=== PATIENT | male | born 1990 | race Caucasian/White ===

== ENCOUNTER 2016-06-29 11:54 | Emergency (ER) | payer OTHER ==
[~2016-06-29] VITALS: Ht 172.7 cm; Wt 77.3 kg
[2016-06-29 11:55] VITALS: BP 154/90; PULSE 100; TEMP 36.4; O2SAT 96; Ht 172.7 cm; Wt 77.3 kg
[2016-06-29] MEDS ORDERED: CTP/1 PO ×2 (12:30→12:49)
--- NOTE | 2016-06-29 12:42 | EMERGENCY ROOM VISIT NOTE ---
ED Visit Note First contact with patient: 12:04 CHIEF COMPLAINT: Requests medication prescription refill HISTORY OF PRESENT ILLNESS: This 26-year-old male presents to the ER requesting refills on 6 different medications for his anxiety and depression. The patient states that he was incarcerated and was released on May 26. They only gave him 5 days worth of medication on discharge. On June 05 he did intake evaluation for mental health and then is in the process of 3 counselor sessions and after he goes through this then they will put in a request for a psychiatric appointment for medication. The patient states the earliest appointment he has now is July 24 with a psychiatrist for medication. He just got a call today from the [facility] who gave him an appointment with a family physician, Dr. Anguiano this at 8 AM to hopefully fill his prescriptions until he is evaluated by psychiatry on July 24. The patient states that he has been off his meds for almost 3 weeks. He is more agitated and on edge. He also has depression symptoms. He denies any suicidal homicidal ideations. PMH: The patient is healthy; heart disease, hypertension, anxiety/depression SOCIAL HISTORY: Patient admits to tobacco use but denies any alcohol use PHYSICAL EXAM: Vital Signs: Were reviewed Reviewed Nurse's notes. GEN.: 26-year -old white male appears in no acute distress. MENTAL Status: Alert and oriented 3. The patient appears somewhat anxious. He is nontender full. His thought process is good. LUNGS: Clear to auscultation without wheezes rales or rhonchi. CARDIAC: Regular rate and rhythm without murmur. EMERGENCY COURSE: The patient was evaluated. I discussed the case with Dr. Fitzgerald. I will give the patient a prescription for 3 days worth of all his medications. DIAGNOSIS: Prescription refill DISCHARGE INSTRUCTIONS: Take medications as prescribed. Keep scheduled appointment on with Dr. Anguiano. Problem List Medical Problems: (1) Antisocial personality disorder Status: Chronic (2) Bipolar disorder Status: Chronic (3) Bronchitis Status: Resolved (4) Hypertension Status: Chronic (5) Opioid dependence Status: Chronic (6) Pneumonia Status: Resolved Social History Problems: (1) Hepatitis C Status: Chronic Current/Historical Medications Scheduled Bupropion (Zyban), 150 MG PO BID Buspirone HCl (Buspirone HCl), 20 MG PO TID Clonidine Hcl (Catapres), 0.1 MG PO BID Oxcarbazepine (Trileptal), 150 MG PO BID Quetiapine Fumarate (Seroquel), 100 MG PO BID Quetiapine Fumarate (Seroquel), 150 MG PO HS Allergies Coded Allergies: Aspirin (Verified Allergy, Severe, RESP DISTRESS-THROAT CLOSES-HIVES, 06/29) Fish Allergy (Verified Allergy, Severe, RESPIRATORY DISTRESS-FACE SWELLS AND THROAT CLOSES UP, 06/29/16) Haloperidol (Verified Allergy, Severe, patient states "my throat closes", 06/29/16) Vital Signs Date Time Temp Pulse Resp B/P Pulse Ox O2 Delivery O2 Flow Rate FiO2 06/29/16 11:55 36.4 100 18 154/90 96 Room Air Departure Information Referrals No Doctor, Assigned (PCP) Patient Instructions [facility]
[2016-06-29] MEDS ORDERED: SRQ/100 PO (12:49)
[2016-06-29] MEDS ORDERED: OXCA150T3 PO (12:49)
[2016-06-29] MEDS ORDERED: BUPR150T7 PO (12:49)
[2016-06-29] MEDS ORDERED: BUSP15TA70 PO (12:49)
[2016-06-29] MEDS ORDERED: QUET1TAB32 PO (12:49)
[2016-12-04] MEDS ORDERED: BUPR150T47 PO (12:30)
[2016-12-04] MEDS ORDERED: QUET1TAB34 PO ×2 (12:30)
[2016-12-04] MEDS ORDERED: BSP/10 PO (12:30)
[2016-12-04] MEDS ORDERED: OXCA150T2 PO (12:30)
== END 2016-06-29 12:53 | disposition home or self-care (01) ==
LOC: C.EDB 11:56 → C.EDD 12:53
DX: Z02.79 Encounter for issue of other medical certificate (principal); F41.8 Other specified anxiety disorders; I10 Essential (primary) hypertension; I51.9 Heart disease, unspecified; F31.9 Bipolar disorder, unspecified; B19.20 Unspecified viral hepatitis C without hepatic coma; F17.200 Nicotine dependence, unspecified, uncomplicated; Z79.899 Other long term (current) drug therapy; Z88.8 Allergy status to other drugs, medicaments and biological substances; Z91.018 Allergy to other foods

== ENCOUNTER 2016-11-30 13:03 | Emergency (ER) | payer OTHER ==
[~2016-11-30] VITALS: Ht 172.7 cm; Wt 90.9 kg
[~2016-11-30 13:03] MED LIST: BUPR150T7 PO; CTP/1 PO; OXCA150T3 PO
[2016-11-30 13:08] VITALS: TEMP 36.5; Ht 172.7 cm; Wt 90.9 kg
[2016-11-30] MEDS ORDERED: SODIUM CHLORIDE 0.9% 1000ML 1,000 ML IV STA (13:32)
[2016-11-30 14:08] LABS: URINE APPEARANCE CLEAR (CLEAR); URINE BILIRUBIN NEG (NEG); URINE COLOR DK YELLOW; URINE NITRITE NEG (NEG); URINE PH 5.5 (4.5-7.5); URINE SPECIFIC GRAVITY 1.024 (1.000-1.030); UROBILINOGEN NEG (NEG); ZZUR CULT IF INDIC CLEAN CATCH NO
[2016-11-30 14:10] LABS: MANUAL MICROSCOPIC REQUIRED? NO; REVIEW REQ? NO
[2016-11-30 14:14] LABS: BASO % 0.2 %; BASO ABS # 0.03 K/uL (0-0.2); COMPLETE YES; EOS % 1.7 %; HEMATOCRIT 44.9 % (42-52); IG% 0.6 %; LYMPH ABS # 3.03 K/uL (1.2-3.4); MEAN CELL VOLUME 89.1 fL (80-100); MEAN CORPUSCULAR HEMOGLOBIN 31.9 pg (25-34); MEAN CORPUSCULAR HGB CONC 35.9 g/dl (32-36); MEAN PLATELET VOLUME 10.9 fL (7.4-10.4); NEUT % 72.5 %; PLATELET COUNT 347 K/uL (130-400); RED BLOOD COUNT 5.04 M/uL (4.7-6.1)
[2016-11-30 14:36] LABS: BUN/CREATININE RATIO 9.6 (10-20); CALCIUM 9.2 mg/dl (8.5-10.1); CREATININE 1.1 mg/dl (0.60-1.40); POTASSIUM 3.7 mmol/L (3.5-5.1)
--- NOTE | 2016-11-30 15:44 | DIAGNOSTIC IMAGING REPORT ---
CHEST 2 VIEWS ROUTINE CLINICAL HISTORY: Leukocytosis. Diaphoresis. COMPARISON STUDY: Chest radiograph December 02, 2013. FINDINGS: Lung volumes are normal. No pneumothorax or pleural effusion is present. There is no consolidation to suggest pneumonia. Mild interstitial prominence is unchanged. Cardiomediastinal silhouette is normal. Appearance of the chest is unchanged. IMPRESSION: No acute cardiopulmonary findings. Electronically signed by: Stalin Joshi M.D. 11/30/2016 3:42 PM Dictated Date/Time: 11/30/2016 3:41 PM
[2016-11-30] MEDS ORDERED: AZITTAB PO (15:56)
--- NOTE | 2016-11-30 15:57 | EMERGENCY ROOM VISIT NOTE ---
History First contact with patient: 13:25 Chief Complaint: FLU LIKE SX Stated Complaint: SICK, SWEATING,DIZZY History of Present Illness The patient is a 26 year old male who presents to the Emergency Room with complaints of achy all over. The patient states 2 days ago he started with a runny nose. Then yesterday he felt achy all over and broke out in sweats while he was at work. The patient continues to feel achy all over today. He denies any known fever, ear pain, sore throat, cough, chest tightness. The patient states that his son has similar symptoms. He started 5 days ago. 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 The patient did not recently have the flu shot. The patient denies any recent medication changes. Review of Systems 10 system review was performed and was negative unless stated otherwise history of present illness. Past Medical/Surgical History Medical Problems: (1) Antisocial personality disorder (2) Bipolar disorder (3) Bronchitis (4) Hypertension (5) Opioid dependence (6) Pneumonia Social History Problems: (1) Hepatitis C Family History FHx: diabetes FHx: heart disease FHx: hypertension Social History Smoking Status: Current Every Day Smoker Alcohol Use: none Marital Status: in relationship Housing Status: other Occupation Status: unemployed Current/Historical Medications Scheduled Bupropion (Zyban), 150 MG PO BID Bupropion Hcl (Wellbutrin Sr), 1 TAB PO BID Buspirone HCl (Buspirone HCl), 20 MG PO TID Oxcarbazepine (Trileptal), 150 MG PO BID Oxcarbazepine (Trileptal), 1 TAB PO BID Quetiapine Fumarate (Seroquel), 100 MG PO BID Quetiapine Fumarate (Seroquel), 150 MG PO HS Physical Exam Vital Signs Date Time Temp Pulse Resp B/P (MAP) Pulse Ox O2 Delivery O2 Flow Rate FiO2 11/30/16 14:28 93 20 136/92 95 Room Air 11/30/16 13:08 36.5 92 20 135/99 97 Room Air Physical Exam PHYSICAL EXAM: Vital Signs were reviewed: Reviewed Nurse's notes and agree. Oxygen saturation is 97 % on room air which is normal . GENERAL: 26-year-old male appears in no acute distress. MENTAL STATUS: Alert, oriented, coherent. EARS: Canals clear. TMs good light reflex, no erythema or fluid level noted. NOSE: Nasal mucosa with moderate erythema engorgement. PHARYNX: No erythema, no edema noted. No exudate noted. Airway is adequate. NECK: Supple, non-tender. No lymphadenopathy noted. LUNGS: Clear to auscultation without wheezes rales or rhonchi. CARDIAC: Regular rate and rhythm without murmur. SKIN: No rashes noted. Medical Decision & Procedures ER Provider Diagnostic Interpretation: CHEST 2 VIEWS ROUTINE CLINICAL HISTORY: Leukocytosis. Diaphoresis. COMPARISON STUDY: Chest radiograph December 02, 2013. FINDINGS: Lung volumes are normal. No pneumothorax or pleural effusion is present. There is no consolidation to suggest pneumonia. Mild interstitial prominence is unchanged. Cardiomediastinal silhouette is normal. Appearance of the chest is unchanged. IMPRESSION: No acute cardiopulmonary findings. Electronically signed by: Stalin Joshi M.D. 11/30/2016 3:42 PM Dictated Date/Time: 11/30/2016 3:41 PM Laboratory Results 11/30/16 13:40 Red Blood Count 5.04, Mean Corpuscular Volume 89.1, Mean Corpuscular Hemoglobin 31.9, Mean Corpuscular Hemoglobin Concent 35.9, Mean Platelet Volume 10.9, Neutrophils (%) (Auto) 72.5, Lymphocytes (%) (Auto) 21.0, Monocytes (%) (Auto) 4.0, Eosinophils (%) (Auto) 1.7, Basophils (%) (Auto) 0.2, Neutrophils # (Auto) 10.42, Lymphocytes # (Auto) 3.03, Monocytes # (Auto) 0.58, Eosinophils # (Auto) 0.25, Basophils # (Auto) 0.03 11/30/16 13:40 Test 11/30/16 13:40 White Blood Count 14.40 K/uL (4.8-10.8) Red Blood Count 5.04 M/uL (4.7-6.1) Hemoglobin 16.1 g/dL (14.0-18.0) Hematocrit 44.9 % (42-52) Mean Corpuscular Volume 89.1 fL (80-100) Mean Corpuscular Hemoglobin 31.9 pg (25-34) Mean Corpuscular Hemoglobin Concent 35.9 g/dl (32-36) Platelet Count 347 K/uL (130-400) Mean Platelet Volume 10.9 fL (7.4-10.4) Neutrophils (%) (Auto) 72.5 % Lymphocytes (%) (Auto) 21.0 % Monocytes (%) (Auto) 4.0 % Eosinophils (%) (Auto) 1.7 % Basophils (%) (Auto) 0.2 % Neutrophils # (Auto) 10.42 K/uL (1.4-6.5) Lymphocytes # (Auto) 3.03 K/uL (1.2-3.4) Monocytes # (Auto) 0.58 K/uL (0.11-0.59) Eosinophils # (Auto) 0.25 K/uL (0-0.5) Basophils # (Auto) 0.03 K/uL (0-0.2) RDW Standard Deviation 44.8 fL (36.4-46.3) RDW Coefficient of Variation 13.7 % (11.5-14.5) Immature Granulocyte % (Auto) 0.6 % Immature Granulocyte # (Auto) 0.09 K/uL (0.00-0.02) Urine Color DK YELLOW Urine Appearance CLEAR (CLEAR) Urine pH 5.5 (4.5-7.5) Urine Specific [place] 1.024 (1.000-1.030) Urine Protein NEG (NEG) Urine Glucose (UA) NEG (NEG) Urine Ketones TRACE (NEG) Urine Occult Blood NEG (NEG) Urine Nitrite NEG (NEG) Urine Bilirubin NEG (NEG) Urine Urobilinogen NEG (NEG) Urine Leukocyte Esterase NEG (NEG) Anion Gap 9.0 mmol/L (3-11) Est Creatinine Clear Calc Drug Dose 109.4 ml/min Estimated GFR () 105.3 Estimated GFR (Non- 90.9 BUN/Creatinine Ratio 9.6 (10-20) Calcium Level 9.2 mg/dl (8.5-10.1) Influenza Type A Antigen Neg for Influ A (NEG) Influenza Type B Antigen Neg for Influ B (NEG) Medications Administered Medications (Trade) Dose Ordered Sig/Elizabeth Route Start Time Stop Time Status Last Admin Dose Admin Sodium Chloride 1,000 ml @ 999 mls/hr Q1H1M STAT IV 11/30/16 13:32 11/30/16 14:32 DC 11/30/16 13:52 999 MLS/HR ED Course The patient was evaluated. IV access was obtained. The patient was given 1 L normal saline wide-open. CBC and differential and renal profile was ordered. Urinalysis was ordered. Rapid influenza was negative for influenza A and influenza B., Labs are reviewed. The patient's white count was elevated at 14, 000 otherwise unremarkable. Urinalysis was negative. Chest x-ray was then ordered and interpreted by the radiologist and myself as above without any acute findings. The patient was informed of the findings. Patient was discharged home in stable condition.. Medical Decision Differential diagnosis include influenza, viral URI, pneumonia, bronchitis, UTI JOSE C Drug Monitoring Program Search Results: patient reviewed within database Medication Reconcilliation Current Medication List: was personally reviewed by me Blood Pressure Screening Patient's blood pressure: Normal blood pressure Impression Primary Impression: Upper respiratory infection Departure Information Dispostion Home / Self-Care Condition GOOD Prescriptions Azithromycin (ZITHROMAX Z-JERRY) 250 Mg Tab 0 PO UD, #1 PKT Prov: Anna Galdamez, ROHAN 11/30/16 Referrals No Doctor, Assigned (PCP) Forms HOME CARE DOCUMENTATION FORM, IMPORTANT VISIT INFORMATION Patient Instructions My [facility] Additional Instructions Continue [id number] symptomatic treatment. Tylenol as needed for fever or body aches. Push fluids. If symptoms are not improving in 2-3 days get the prescription for Z-Jerry filled and take as directed. If symptoms worsen, follow- up with your family doctor. Problem Qualifiers Primary Impression: Upper respiratory infection URI type: unspecified URI Qualified Codes: J06.9 - Acute upper respiratory infection, unspecified
[2016-11-30 16:10] VITALS: BP 160/100; PULSE 88; O2SAT 98
[2016-12-04] MEDS ORDERED: QUET1TAB34 PO ×2 (12:30)
[2016-12-04] MEDS ORDERED: BSP/10 PO (12:30)
[2016-12-04] MEDS ORDERED: OXCA150T2 PO (12:30)
[2016-12-04] MEDS ORDERED: BUPR150T47 PO (12:30)
== END 2016-11-30 16:12 | disposition home or self-care (01) ==
LOC: C.EDB 13:05 → C.EDC 16:12
DX: J06.9 Acute upper respiratory infection, unspecified (principal); R61 Generalized hyperhidrosis; I10 Essential (primary) hypertension; F31.9 Bipolar disorder, unspecified; F17.210 Nicotine dependence, cigarettes, uncomplicated; F60.2 Antisocial personality disorder; R42 Dizziness and giddiness; Z79.899 Other long term (current) drug therapy

== ENCOUNTER 2016-12-04 19:45 | Emergency (ER) | payer OTHER ==
[~2016-12-04] VITALS: Ht 172.7 cm; Wt 89.2 kg
[2016-12-04 19:45] VITALS: TEMP 36.8; Ht 172.7 cm; Wt 89.2 kg
[~2016-12-04 19:45] MED LIST changes: +AZITTAB PO; +BSP/10 PO; +BUPR150T47 PO; -CTP/1 PO; +OXCA150T2 PO; +QUET1TAB34 PO
[2016-12-04 20:57] LABS: BASO % 0.2 %; BASO ABS # 0.02 K/uL (0-0.2); COMPLETE YES; EOS % 1.8 %; HEMATOCRIT 43.5 % (42-52); IG% 0.6 %; LYMPH % 26.7 %; LYMPH ABS # 3.18 K/uL (1.2-3.4); MEAN CORPUSCULAR HEMOGLOBIN 32.7 pg (25-34); MEAN CORPUSCULAR HGB CONC 36.8 g/dl (32-36); MEAN PLATELET VOLUME 10.7 fL (7.4-10.4); MONO % 6.1 %; NEUT % 64.6 %; PLATELET COUNT 301 K/uL (130-400); RED BLOOD COUNT 4.89 M/uL (4.7-6.1); WHITE BLOOD COUNT 11.92 K/uL (4.8-10.8)
[2016-12-04 21:06] LABS: PARTIAL THROMBOPLASTIN RATIO 1.1; PROTHROMBIN TIME (PATIENT) 10.9 SECONDS (9.0-12.0)
[2016-12-04 21:13] LABS: BUN/CREATININE RATIO 11.3 (10-20); CALCIUM 9.2 mg/dl (8.5-10.1); CREATININE 1.2 mg/dl (0.60-1.40); POTASSIUM 3.2 mmol/L (3.5-5.1)
[2016-12-04 21:15] LABS: ACETAMINOPHEN < 2 ug/ml (10-30)
[2016-12-04 22:06] VITALS: BP 151/91; PULSE 118; O2SAT 96
[2016-12-04] MEDS ORDERED: ONDANSETRON 4MG OD TAB PO ONE (22:15)
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
== END 2016-12-04 23:28 | disposition home or self-care (01) ==
LOC: EDBD 19:45 → C.EDA 19:46
DX: T51.91XA Toxic effect of unspecified alcohol, accidental (unintentional), initial encounter (principal); R00.0 Tachycardia, unspecified; I10 Essential (primary) hypertension; F31.9 Bipolar disorder, unspecified; Z79.899 Other long term (current) drug therapy; Z87.01 Personal history of pneumonia (recurrent); Z87.09 Personal history of other diseases of the respiratory system; Z82.49 Family history of ischemic heart disease and other diseases of the circulatory system; Z83.3 Family history of diabetes mellitus

== ENCOUNTER 2017-03-20 19:42 | Inpatient (IN) | payer OTHER ==
[~2017-03-20] VITALS: Ht 172.7 cm; Wt 95.4 kg
[~2017-03-20 19:42] MED LIST changes: -AZITTAB PO; -BUPR150T7 PO; -OXCA150T3 PO
[2017-03-20] MEDS ORDERED: SODIUM CHLORIDE 0.9% 1000ML 1,000 ML IV STA (19:51)
[2017-03-20] MEDS ORDERED: ACTIVATED CHARCOAL/SORBITOL 25 GM/120 ML TUBE PO STA (19:51)
[2017-03-20] MEDS ORDERED: AMPH30CA3 PO (20:10)
[2017-03-20] MEDS ORDERED: AMPH30TA2 PO (20:10)
[2017-03-20] MEDS ORDERED: LORA-741 PO (20:11)
--- NOTE | 2017-03-20 20:25 | DIAGNOSTIC IMAGING REPORT ---
CHEST ONE VIEW PORTABLE CLINICAL HISTORY: Overdose COMPARISON STUDY: 11/30/2016 FINDINGS: The heart is normal in size. There is no failure. There is no focal pulmonary consolidation. There are no pleural effusions. A left infrahilar density is felt to represent a vascular summation.[ IMPRESSION: No active disease in the chest. Electronically signed by: Francis Tejada M.D. 03/20/2017 8:24 PM Dictated Date/Time: 03/20/2017 8:23 PM
[2017-03-20] MEDS ORDERED: LORAZEPAM 1 MG TAB SL STA (21:17)
[2017-03-20] MEDS ORDERED: QUETIAPINE FUMARATE 150 MG TABCR PO ONE (21:30)
[2017-03-20 21:57] LABS: BASO % 0.2 %; BASO ABS # 0.02 K/uL (0-0.2); EOS % 0.5 %; EOS ABS # 0.07 K/uL (0-0.5); HEMATOCRIT 42.4 % (42-52); HEMOGLOBIN 15.1 g/dL (14.0-18.0); IG# 0.15 K/uL (0.00-0.02); LYMPH % 21.9 %; LYMPH ABS # 2.88 K/uL (1.2-3.4); MEAN CELL VOLUME 89.3 fL (80-100); MEAN CORPUSCULAR HEMOGLOBIN 31.8 pg (25-34); MEAN CORPUSCULAR HGB CONC 35.6 g/dl (32-36); MEAN PLATELET VOLUME 11.4 fL (7.4-10.4); MONO % 5.6 %; MONO ABS # 0.74 K/uL (0.11-0.59); NEUT % 70.7 %; NEUT ABS # 9.29 K/uL (1.4-6.5); PLATELET COUNT 292 K/uL (130-400); RED CELL DISTRIBUTION WIDTH CV 12.7 % (11.5-14.5); RED CELL DISTRIBUTION WIDTH SD 41.1 fL (36.4-46.3); WHITE BLOOD COUNT 13.15 K/uL (4.8-10.8)
[2017-03-20] MEDS ORDERED: QUETIAPINE FUMARATE 100 MG TAB PO ONE (22:00)
[2017-03-20 22:15] LABS: ALBUMIN 3.5 gm/dl (3.4-5.0); ALT/SGPT 149 U/L (12-78); BLOOD UREA NITROGEN 5 mg/dl (7-18); CARBON DIOXIDE 21 mmol/L (21-32); CREATININE 0.82 mg/dl (0.60-1.40); GLUCOSE 104 mg/dl (70-99); POTASSIUM 3.7 mmol/L (3.5-5.1); SODIUM 138 mmol/L (136-145)
[2017-03-20 22:21] LABS: ALKALINE PHOSPHATASE 97 U/L (45-117); AST/SGOT 59 U/L (15-37); PTT PATIENT 28.9 SECONDS (21.0-31.0); TOTAL PROTEIN 8.2 gm/dl (6.4-8.2)
[2017-03-20 23:00] VITALS: O2SAT 98
--- NOTE | 2017-03-21 00:47 | EMERGENCY ROOM VISIT NOTE ---
History Report prepared by Sylvia: Spencer Rowe Under the Supervision of: Dr. Tobi Bustillo D.O. First contact with patient: 19:46 Stated Complaint: DRUG OVERDOSE/BEER History of Present Illness The patient is a 26 year old male who presents to the Emergency Room with complaints of an overdose episode that began 20 minutes ago. He states he took 15 Gabapentin pills at 800mg each. Patient adds that he drank a "6-pack" throughout the day as well. He adds that he was trying to commit suicide. Patient has a history of using Heroin but states he has been off of it for "a while". He states his suicidal symptoms were exacerbated by having a baby on the way and with his being non-cooperative with their relationship recently. Source of History: patient Onset: 20 minutes ago Position: other (Global) Timing: other (Episode) Modifying Factors (Relieving): other (None) Review of Systems See HPI for pertinent positives & negatives. A total of 10 systems reviewed and were otherwise negative. Past Medical & Surgical Medical Problems: (1) Antisocial personality disorder (2) Bipolar disorder (3) Bronchitis (4) Hypertension (5) Opioid dependence (6) Pneumonia Social History Problems: (1) Hepatitis C Family History FHx: diabetes FHx: heart disease FHx: hypertension Social History Smoking Status: Current Every Day Smoker Marital Status: in relationship Housing Status: lives with friends Occupation Status: unemployed Current/Historical Medications Scheduled Amphetamine-Dextroamphetamine 30MG (Adderall Xr 30MG), 30 MG PO QAM Amphetamine-Dextroamphetamine 30MG (Adderall 30MG), 30 MG PO NOON Bupropion (Zyban), 150 MG PO BID Lorazepam (Ativan), 0.5 MG PO BID Quetiapine Fumarate (Seroquel), 100 MG PO BID Quetiapine Fumarate (Seroquel), 150 MG PO HS Allergies Coded Allergies: Aspirin (Verified Allergy, Severe, RESP DISTRESS-THROAT CLOSES-HIVES, ) Fish Allergy (Verified Allergy, Severe, RESPIRATORY DISTRESS-FACE SWELLS AND THROAT CLOSES UP, 03/20/17) Haloperidol (Verified Allergy, Severe, patient states "my throat closes", 03/20/17) Physical Exam Vital Signs Date Time Temp Pulse Resp B/P (MAP) Pulse Ox O2 Delivery O2 Flow Rate FiO2 03/20/17 23:00 98 18 161/77 98 Room Air 03/20/17 20:54 98 03/20/17 20:45 95 20 157/91 98 Room Air 03/20/17 20:01 37.0 106 20 185/106 96 Room Air Physical Exam CONSTITUTIONAL/VITAL SIGNS: Reviewed / noted above. GENERAL: Non-toxic in appearance. INTEGUMENTARY: Warm, dry, and [place]. HEAD: Normocephalic. EYES: without scleral icterus or trauma. ENT/OROPHARYNX: clear and moist. LYMPHADENOPATHY/NECK: Is supple without lymphadenopathy or meningismus. RESPIRATORY: Lungs clear and equal. CARDIOVASCULAR: Regular rate and rhythm. GI/ABDOMEN: Soft and nontender. No organomegaly or pulsatile mass. No rebound or guarding. Normal bowel sounds. EXTREMITIES: Warm and well perfused. BACK: No CVA tenderness. NEUROLOGICAL: Intact without focal deficits. PSYCHIATRIC: normal affect. MUSCULOSKELETAL: Normally developed with good muscle tone. Medical Decision & Procedures ER Provider Diagnostic Interpretation: Radiology results as stated below per my review and radiologist interpretation: CHEST ONE VIEW PORTABLE CLINICAL HISTORY: Overdose COMPARISON STUDY: 11/30/2016 FINDINGS: The heart is normal in size. There is no failure. There is no focal pulmonary consolidation. There are no pleural effusions. A left infrahilar density is felt to represent a vascular summation.[ IMPRESSION: No active disease in the chest. Electronically signed by: Francis Tejada M.D. 03/20/2017 8:24 PM Laboratory Results 03/20/17 21:39 Red Blood Count 4.75, Mean Corpuscular Volume 89.3, Mean Corpuscular Hemoglobin 31.8, Mean Corpuscular Hemoglobin Concent 35.6, Mean Platelet Volume 11.4, Neutrophils (%) (Auto) 70.7, Lymphocytes (%) (Auto) 21.9, Monocytes (%) (Auto) 5.6, Eosinophils (%) (Auto) 0.5, Basophils (%) (Auto) 0.2, Neutrophils # (Auto) 9.29, Lymphocytes # (Auto) 2.88, Monocytes # (Auto) 0.74, Eosinophils # (Auto) 0.07, Basophils # (Auto) 0.02 03/20/17 21:39 Test 03/20/17 21:35 03/20/17 21:39 Urine Color YELLOW Urine Appearance CLEAR (CLEAR) Urine pH 6.0 (4.5-7.5) Urine Specific [place] 1.021 (1.000-1.030) Urine Protein NEG (NEG) Urine Glucose (UA) NEG (NEG) Urine Ketones NEG (NEG) Urine Occult Blood NEG (NEG) Urine Nitrite NEG (NEG) Urine Bilirubin NEG (NEG) Urine Urobilinogen NEG (NEG) Urine Leukocyte Esterase NEG (NEG) Urine Opiates Screen POS (NEG) Urine Methadone, Qualitative NEG (NEG) Urine Barbiturates NEG (NEG) Urine Phencyclidine (PCP) Level NEG (NEG) Ur Amphetamine/Methamphetamine NEG (NEG) MDMA (Ecstasy) Screen POS (NEG) Urine Benzodiazepines Screen NEG (NEG) Urine Cocaine Metabolite NEG (NEG) Urine Marijuana (THC) POS (NEG) White Blood Count 13.15 K/uL (4.8-10.8) Red Blood Count 4.75 M/uL (4.7-6.1) Hemoglobin 15.1 g/dL (14.0-18.0) Hematocrit 42.4 % (42-52) Mean Corpuscular Volume 89.3 fL (80-100) Mean Corpuscular Hemoglobin 31.8 pg (25-34) Mean Corpuscular Hemoglobin Concent 35.6 g/dl (32-36) Platelet Count 292 K/uL (130-400) Mean Platelet Volume 11.4 fL (7.4-10.4) Neutrophils (%) (Auto) 70.7 % Lymphocytes (%) (Auto) 21.9 % Monocytes (%) (Auto) 5.6 % Eosinophils (%) (Auto) 0.5 % Basophils (%) (Auto) 0.2 % Neutrophils # (Auto) 9.29 K/uL (1.4-6.5) Lymphocytes # (Auto) 2.88 K/uL (1.2-3.4) Monocytes # (Auto) 0.74 K/uL (0.11-0.59) Eosinophils # (Auto) 0.07 K/uL (0-0.5) Basophils # (Auto) 0.02 K/uL (0-0.2) RDW Standard Deviation 41.1 fL (36.4-46.3) RDW Coefficient of Variation 12.7 % (11.5-14.5) Immature Granulocyte % (Auto) 1.1 % Immature Granulocyte # (Auto) 0.15 K/uL (0.00-0.02) Prothrombin Time 10.4 SECONDS (9.0-12.0) Prothromb Time International Ratio 1.0 (0.9-1.1) Activated Partial Thromboplast Time 28.9 SECONDS (21.0-31.0) Partial Thromboplastin Ratio 1.1 Anion Gap 8.0 mmol/L (3-11) Est Creatinine Clear Calc Drug Dose 150.3 ml/min Estimated GFR () 139.5 Estimated GFR (Non- 120.3 BUN/Creatinine Ratio 5.8 (10-20) Calcium Level 8.0 mg/dl (8.5-10.1) Total Bilirubin 0.2 mg/dl (0.2-1) Direct Bilirubin < 0.1 mg/dl (0-0.2) Aspartate Amino Transf (AST/SGOT) 59 U/L (15-37) Alanine Aminotransferase (ALT/SGPT) 149 U/L (12-78) Alkaline Phosphatase 97 U/L (45-117) Total Creatine Kinase 159 U/L (39-308) Creatine Kinase MB 1.0 ng/ml (0.5-3.6) Creatine Kinase MB Ratio 0.6 (0-3.0) Troponin I < 0.015 ng/ml (0-0.045) Total Protein 8.2 gm/dl (6.4-8.2) Albumin 3.5 gm/dl (3.4-5.0) Salicylates Level 2.0 mg/dl (2.8-20) Acetaminophen Level < 2 ug/ml (10-30) Ethyl Alcohol mg/dL 9.2 mg/dl (0-3) Laboratory results as stated above per my review. Medications Administered Medications (Trade) Dose Ordered Sig/Elizabeth Route Start Time Stop Time Status Last Admin Dose Admin Sodium Chloride 1,000 ml @ 999 mls/hr Q1H1M STAT IV 03/20/17 19:51 03/20/17 20:51 DC 03/20/17 20:25 999 MLS/HR Lorazepam (Ativan Tab) 1 mg NOW STAT SL 03/20/17 21:17 03/20/17 21:19 DC 03/20/17 22:02 1 MG Quetiapine Fumarate (seroQUEL TAB) 150 mg 2200 ONCE PO 03/20/17 22:00 03/20/17 22:01 DC 03/20/17 22:03 150 MG ECG Indication: other (Overdose) Rate (beats per minute): 88 Rhythm: sinus rhythm (with marked sinus arrhythmia) Findings: no acute ischemic change, no ectopy ED Course 1949: Previous medical records were reviewed. The patient was evaluated in room A6. A complete history and physical examination was performed. 1950: Sodium Chloride 1000 ml @ 999 mls/hr IV, Activated Charcol/Sorbitol 50gm PO 2116: Ativan Tab 1mg SL, Quetiapine Fumarate 150mg PO 226: On reevaluation, the patient will be further evaluated. I discussed the results and findings with him. He verbalized agreement of the treatment plan. The patient will be evaluated for further management and care. Medical Decision Differential includes overdose on Tylenol/aspirin/ethanol, ethylene glycol, methanol, prescribed medications, not prescribe medications/street drugs, metabolic process, traumatic process. This is a 26-year-old male who presents to the ED with a chief complaint of an intentional overdose. The patient reports that he took about 15 800 mg tablets of gabapentin in order to kill himself. The patient reports that he drank a sixpack earlier today. He took the gabapentin about 20 minutes before he came in. The patient states that he has been having some problems with his girlfriend. He is also a heroin addict. He states that he just doesn't want to deal with it anymore. The patient denies any recent heroin use. His physical exam was unremarkable. He does have a history of IV heroin abuse. The patient has an unremarkable CBC and complete metabolic panel. Troponin was negative. Urine did not show infection. Alcohol level was 9. Positive marijuana and opiates on the drug screen. Chest x-ray was negative. The patient was told the results. He was given Ativan 1 mg sublingual and Seroquel 150 mg orally as he takes this at night. He refused the activated charcoal. He was observed here for over 5 hours. The patient is felt to be stable for psychiatric evaluation/admission. He is being admitted to as a 201. The patient was briefly restrained with sharda when he became agitated during his blood draws. The patient states that he is a heroin addict and knows where his veins are. He advised the elastic cutter this time and she did not listen to him and therefore he was agitated and became somewhat aggressive. Security was contacted and restrained him briefly. Medication Reconcilliation Current Medication List: was personally reviewed by me Blood Pressure Screening Patient's blood pressure: Elevated blood pressure Blood pressure disposition: Referred to PCP Impression Primary Impression: Suicidal ideations Additional Impression: Gabapentin overdose Scribe Attestation The scribe's documentation has been prepared under my direction and personally reviewed by me in its entirety. I confirm that the note above accurately reflects all work, treatment, procedures, and medical decision making performed by me. Departure Information Dispostion Mental Health Acute Care Referrals No Doctor, Assigned (PCP) Forms HOME CARE DOCUMENTATION FORM, IMPORTANT VISIT INFORMATION, WORK / SCHOOL INSTRUCTIONS Patient Instructions My [facility] Problem Qualifiers
[2017-03-21] MEDS ORDERED: NURSING VERBAL MED ORDER ONE ×2 (03:00→05:45)
[2017-03-21 03:42] VITALS: BP 149/72; PULSE 88; TEMP 37; Ht 172.7 cm; Wt 95.4 kg
[2017-03-21] MEDS ORDERED: ACETAMINOPHEN 325 MG TAB PO PRN (04:45)
[2017-03-21] MEDS ORDERED: SODIUM CHLORIDE 0.65% NA SOLN 45 ML (OCEAN) PRN (04:45)
[2017-03-21] MEDS ORDERED: BISMUTH SUBSALICYLATE PER ML OMNICELL CHARGE PO PRN (04:45)
[2017-03-21] MEDS ORDERED: MAGNESIUM HYDROXIDE SUSP 30 ML UDC PO PRN (04:45)
[2017-03-21] MEDS ORDERED: ALUMINUM/MAGNESIUM SUSP 30 ML UDC PO PRN ×2 (04:45→11:30)
[2017-03-21] MEDS ORDERED: hydrOXYzine HCL 25 MG TAB PO PRN ×2 (04:45)
[2017-03-21] MEDS ORDERED: LORAZEPAM 1 MG TAB ONE (05:53)
[2017-03-21] MEDS ORDERED: QUET1TAB34 PO (09:15)
[2017-03-21] MEDS ORDERED: CLON0.1T12 PO (09:18)
[2017-03-21] MEDS ORDERED: IMDSR/30 PO (09:18)
[2017-03-21] MEDS ORDERED: OXCA150T2 PO (09:18)
[2017-03-21] MEDS ORDERED: BUSP15TA70 PO (09:18)
[2017-03-21] MEDS ORDERED: GABA800T PO (09:18)
[2017-03-21] MEDS ORDERED: BUPR200T2 PO (09:18)
[2017-03-21 09:38] VITALS: BP 152/83; PULSE 83; TEMP 36.6
[2017-03-21] MEDS ORDERED: AMPH30TA2 PO (10:06)
[2017-03-21] MEDS ORDERED: LORA-741 PO (10:07)
[2017-03-21] MEDS ORDERED: AMPHETAMINE ASP/SULF/DEXTRAMPH 10 MG TAB PO PRN (10:30)
[2017-03-21] MEDS: LORAZEPAM 0.5 MG TAB PO PRN ×2 (10:49→16:00)
--- NOTE | 2017-03-21 10:49 | Psychiatric History & Physical ---
History Date of Service Mar 21, 2017. Identifying Data Tirso Jang is a 26-year-old male admitted on Mar 21, 2017 at 02:51 who currently lives in [place] with his 6-year-old son and the grandparents of his child. Tirso Jang was admitted on a 201 voluntary commitment. Patient is admitted from [facility] ER where he presented last evening status post gabapentin overdose reporting suicidal intent. He is known to us from prior psychiatric hospitalization, last in 2012. He is an unreliable historian and information today is incongruent with his report from last evening. Chief Complaint "I'm not suicidal. I would never do that. I have too much going for me." History of Present Illness This patient presented last evening to the [facility] ER reporting gabapentin overdose taking 15 800 mg tablets 20 minutes prior to arrival. He also indicated that he drank a sixpack and stated that he was trying to commit suicide. He reported acute duress secondary to having a baby on the way and has been having discord with his significant other. In the ER he refused activated charcoal. Received Ativan 1 mg and quetiapine 150 mg. Required leather restraints and briefly agitated during blood draw and described as becoming "somewhat aggressive." He was medically cleared and admitted to the behavioral health unit on a voluntary status. This morning the patient denies that his gabapentin ingestion was a suicide attempt. He tells me that he only took 6 of the gabapentin and adamantly states that he only took the medication as an attempt to manipulate the behavior of his significant other." Me and my girlfriend were drinking all day. I was past that she was drinking because she is and I said 'if you are going to do that then I'm going to do this'." He denies that he wanted to at any time. When queried about his statements last evening he states he was angry with his girlfriend and was intoxicated (alcohol level only 9.) He denies that he has been feeling depressed but does acknowledge feeling "stressed " with child pending. 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 He reports the child is with his grandparents and they have partial custody. He denies symptoms concerning for acute depressive episode, generalized anxiety disorder, or panic disorder. He denies hallucinations or unusual thinking. He denies thoughts of harm to himself or anyone else presently. He reports he has been going to see his psychiatrist, Dr. Ludwig, monthly and states that he believes this psychiatrist actually cares about him "but sometimes he is too up in my business." He reports good treatment effect on his current regimen of Wellbutrin, Seroquel, Adderall, gabapentin, and Trileptal. He believes his medication regimen has been relatively stable for several months. The [place] prescription drug monitoring program was reviewed with the patient and it appears his lorazepam dose was decreased from 0.5 mg 3 times a day to 0.5 mg twice a day in late February. Adderall was last written for on 2016. He denies overusing his medications or misusing his medications apart from the gabapentin ingestion. "They work really well when I take them away I should." Regarding his long history of polysubstance abuse he reports since incarceration in 2014 and a 3-4 months long-term rehabilitation ultimately transitioning to a jail program he has significantly reduced his use of recreational substances and alcohol. He denies using heroin in the last 1-2 months however his self-report about this has been variable since presentation. He is demonstrating some symptoms of possible opiate withdrawal this morning including hypertension, restlessness, diarrhea however he believes this feels different and what he has experienced in the past when withdrawing from opiates. He immediately asks if he can sign a 72 hour notice this morning and expresses desire for discharge as quickly as possible to return to work. Past Psychiatric History Current OP Treatment: psychiatrist (Dr Martin - monthly), clinical case manager Prior [facility]: [facility], other ( many prior hospitalizations) Access to a Gun: No Suicide Attempts: Yes (OD) Past Medication Trials Cogentin, Seroquel, Depakote, Vistaril, Ativan, Concerta, Adderall, Ritalin, Risperdal, Trileptal, gabapentin, clonidine, Wellbutrin, Strattera, Seroquel Past Medical/Surgical History History of Concussion/Seizure: No (1) Gabapentin overdose (2) Opiate abuse, episodic (3) Antisocial personality disorder (4) Attention deficit disorder (ADD) in adult (5) Hypertension (6) Hepatitis C (7) Bipolar disorder Allergies Allergies: Coded Allergies: Aspirin (Verified Allergy, Severe, RESP DISTRESS-THROAT CLOSES-HIVES, ) Fish Allergy (Verified Allergy, Severe, RESPIRATORY DISTRESS-FACE SWELLS AND THROAT CLOSES UP, 03/20/17) Haloperidol (Verified Allergy, Severe, patient states "my throat closes", 03/20/17) Home Medications Scheduled Amphetamine-Dextroamphetamine 30MG (Adderall Xr 30MG), 30 MG PO QAM Bupropion (Wellbutrin Sr), 200 MG PO DAILY Buspirone Hcl (Buspar), 1 TAB PO BID Clonidine Hcl (Catapres), 1 TAB PO DAILY Gabapentin (Neurontin), 800 MG PO TID Isosorbide Mononitrate (Isosorbide Mononitrate ER), 1 TAB PO DAILY Oxcarbazepine (Trileptal), 150 MG PO BID Quetiapine Fumarate (Seroquel), 100 MG PO BID Scheduled PRN Amphetamine-Dextroamphetamine 30MG (Adderall 30MG), 1 TAB PO DAILY PRN for PRN Lorazepam (Ativan), 0.5 MG PO BID PRN for Anxiety Family History FHx: alcoholism MOTHER FATHER FHx: diabetes FHx: heart disease FHx: hypertension History of Suicide: No History of Substance Abuse: Yes Psychiatric History: Yes Reports mother and father had mental illness but unspecified. Mother was alcoholic as was father. Mother from cirrhosis. Denies family history of obesity, diabetes, dyslipidemia, hypertension, or cardiovascular disease. Alcohol Use Alcohol Use In Past 12 Months: Yes ("I had a 6 pack last night. That got me in trouble") AUDIT Total Score: 3 Patient was counseled regarding alcohol use and risks associated with his psychiatric diagnoses and psychotropic medications and abstinence encouraged. Smoking Use Smoking Status: Current Every Day Smoker Substance History Patient has a very lengthy substance abuse history. Long history of opiate abuse including oxycodone, heroin, fentanyl. Multiple inpatient rehabilitation stays,most recent rehabilitation followed incarceration in 2014 for 3-4 months ultimately transitioning to a jail house. Has also been treated with Suboxone and methadone in the past. He reports occasional injected heroin use in last year with last use 1-2 months ago per self-report. Reports one or 2 puffs of marijuana a few times per month. He denies any other recreational drug use actively. He denies any overuse or abuse of his prescribed medications. He is reportedly participating in Narcotics Anonymous attending a weekly Wednesday meeting and has a sponsor. Personal History Lives in: [place] with the grandparents of his 6-year-old son Childhood: Moved a lot growing up. Raised off and on by mother and then father. Parents were never . 2 sisters. Has been homeless in the past. Multiple legal charges in the past including disorderly conduct, loitering, retail theft, and drug charges. Incarcerated last 2014. Reports no active legal charges apart from PFA. He denies a history of psychological trauma or abuse. Psychological Trauma History: Other Review of Systems Constitutional: diaphoresis, other (insomnia, restlessness) Eyes: reports: no symptoms ENT: reports: no symptoms reported Cardiovascular: reports: no symptoms reported Respiratory: reports: no symptoms reported Gastrointestinal: diarrhea, nausea Genitourinary - Male: reports: no symptoms Musculoskeletal: no symptoms reported Integumentary: no symptoms reported Neurologic: reports: no symptoms Endocrine: no symptoms Hematologic / Lymphatic: no symptoms Examination Physical Examination A physical exam was performed in the ER prior to admission to the unit by Dr Bustillo. I accept that physical as medical clearance for the inpatient physical exam. Vital Signs Vital Signs Past 12 Hours Date Time Temp Pulse Resp B/P (MAP) Pulse Ox O2 Delivery O2 Flow Rate FiO2 03/21/17 09:38 36.6 83 18 152/83 03/21/17 03:42 37.0 88 18 149/72 03/20/17 23:00 98 18 161/77 98 Room Air Laboratory Results Last 24 Hours Test 03/20/17 21:35 03/20/17 21:39 Urine Color YELLOW Urine Appearance CLEAR Urine pH 6.0 Urine Specific [place] 1.021 Urine Protein NEG Urine Glucose (UA) NEG Urine Ketones NEG Urine Occult Blood NEG Urine Nitrite NEG Urine Bilirubin NEG Urine Urobilinogen NEG Urine Leukocyte Esterase NEG Urine Opiates Screen POS Urine Methadone, Qualitative NEG Urine Barbiturates NEG Urine Phencyclidine (PCP) Level NEG Ur Amphetamine/Methamphetamine NEG MDMA (Ecstasy) Screen POS Urine Benzodiazepines Screen NEG Urine Cocaine Metabolite NEG Urine Marijuana (THC) POS White Blood Count 13.15 K/uL Red Blood Count 4.75 M/uL Hemoglobin 15.1 g/dL Hematocrit 42.4 % Mean Corpuscular Volume 89.3 fL Mean Corpuscular Hemoglobin 31.8 pg Mean Corpuscular Hemoglobin Concent 35.6 g/dl Platelet Count 292 K/uL Mean Platelet Volume 11.4 fL Neutrophils (%) (Auto) 70.7 % Lymphocytes (%) (Auto) 21.9 % Monocytes (%) (Auto) 5.6 % Eosinophils (%) (Auto) 0.5 % Basophils (%) (Auto) 0.2 % Neutrophils # (Auto) 9.29 K/uL Lymphocytes # (Auto) 2.88 K/uL Monocytes # (Auto) 0.74 K/uL Eosinophils # (Auto) 0.07 K/uL Basophils # (Auto) 0.02 K/uL RDW Standard Deviation 41.1 fL RDW Coefficient of Variation 12.7 % Immature Granulocyte % (Auto) 1.1 % Immature Granulocyte # (Auto) 0.15 K/uL Prothrombin Time 10.4 SECONDS Prothromb Time International Ratio 1.0 Activated Partial Thromboplast Time 28.9 SECONDS Partial Thromboplastin Ratio 1.1 Sodium Level 138 mmol/L Potassium Level 3.7 mmol/L Chloride Level 109 mmol/L Carbon Dioxide Level 21 mmol/L Anion Gap 8.0 mmol/L Blood Urea Nitrogen 5 mg/dl Creatinine 0.82 mg/dl Est Creatinine Clear Calc Drug Dose 150.3 ml/min Estimated GFR () 139.5 Estimated GFR (Non- 120.3 BUN/Creatinine Ratio 5.8 Random Glucose 104 mg/dl Calcium Level 8.0 mg/dl Total Bilirubin 0.2 mg/dl Direct Bilirubin < 0.1 mg/dl Aspartate Amino Transf (AST/SGOT) 59 U/L Alanine Aminotransferase (ALT/SGPT) 149 U/L Alkaline Phosphatase 97 U/L Total Creatine Kinase 159 U/L Creatine Kinase MB 1.0 ng/ml Creatine Kinase MB Ratio 0.6 Troponin I < 0.015 ng/ml Total Protein 8.2 gm/dl Albumin 3.5 gm/dl Salicylates Level 2.0 mg/dl Acetaminophen Level < 2 ug/ml Ethyl Alcohol mg/dL 9.2 mg/dl Mental Examination During interview pt is: alert and oriented, cooperative Appearance: other (very casually groomed) Eye contact is: good Motor behavior is: other (restless. Repositions frequently. Shakes lower extremities persistently) Speech: normal in rate, rhythm & volume Affect: euthymic, other (mildly anxious) Mood is: other ("stressed but not depressed") Thought process: goal directed Thought content: other (negative for overt psychotic thought processes. He is not hopeless.) Suicidal thought are: denied, Plan: denied, Intent: denied Homicidal thoughts are: denied, Plan: denied, Intent: denied Hallucinations: denies auditory, denies visual Cognition: memory grossly intact, attention grossly intact Intelligence estimated to be: consistent with level of education Insight: impaired Judgement: impaired Impression / Recommendations Impression Tirso has a long history of polysubstance abuse, antisocial personality disorder , and many inpatient psychiatric stays as well as many drug rehabilitation efforts. It does sound that the intensity of his substance abuse has reduced following his incarceration in 2014 and a lengthy rehabilitation stay however he continues to episodically abuse heroin, marijuana, and alcohol. At time of presentation he had ingested what appeared to be a quantity of gabapentin and expressed suicidal intent however the following morning on evaluation here he states that it was simply an effort to manipulate his girlfriend and is denying suicidal ideation or intent and requesting to sign a 72 hour notice right away. He also requests that we not make changes to his outpatient medical regimen as he finds it helpful. He reports outpatient diagnoses of bipolar disorder and ADHD historically. Certainly ongoing access to a stimulant and benzodiazepine are not preferred in the setting of such long-standing substance abuse however he appears to be seeing his outpatient psychiatrist regularly and not overtly abusing or misusing these medications. As such, will plan for a conservative approach while he is here, maintaining his home medications and provide a period of monitoring for safety. Inventory Assets Strengths: Able to articulate a choice, has outpatient resources Needs: Monitoring for safety acutely Risk Factors Assessment Male: Yes : Yes Access to guns: No Health problems: No Mental Health Diagnoses: Yes Substance use disorders: Yes Previous attempt: Yes Previous psychiatric stay: Yes Hopelessness: No Smoker: Yes Protective Factors Assessment : No Responsible for young children: Yes Employed: Yes Recommendations (1) Gabapentin overdose 03/21/17 - No obvious sequelae of overdose. Patient reporting only 6 tab ingestion at time of evaluation today. Now recanting that his ingestion was a suicide attempt and reporting as effort to manipulate his significant other - He does have a history of toxic ingestion in the past and requires a period of monitoring for safety - He will participate in unit programming as appropriate with maintenance of suicide precautions and safety checks (2) Opiate abuse, episodic 03/21/17 - He is given a variable self report regarding recent heroin use reporting no use in last 1-2 months on evaluation today but demonstrating possible symptoms of withdrawal. We'll start clonidine 0.1 mg twice a day when necessary and Imodium prn for diarrhea. - Education again provided regarding risks associated with substance abuse particularly given his psychiatric history and medications and abstinence encouraged. He is participating in Narcotics Anonymous. Reports therapist being scheduled by his clinical case manager as an outpatient. He declines consideration for more intensive substance abuse treatment presently (3) Antisocial personality disorder 03/21/17 - History of agitation and behavioral manipulative efforts while hospitalized in the past. Reviewed importance of maintaining appropriate behavior on the unit. Unfortunately he is likely to decompensate and previously has been perceived that the unit milieu was not therapeutic for him. If he is not engaging in therapeutic activities, likely his stay will be brief if he continues to deny self-harm intent (4) Bipolar disorder 03/21/17 - True bipolar diagnosis uncertain however he reportedly carries this diagnosis as an outpatient. We'll continue the Wellbutrin, gabapentin, and Trileptal at his home dose unchanged for now. - We'll continue him on his home dose of Ativan 0.5 mg twice a day to mitigate risk for withdrawal. Reviewed associated risks particularly in the setting of his chronic substance abuse, however we'll defer adjustment to his outpatient provider presently (5) Attention deficit disorder (ADD) in adult 03/21/17 - Historical diagnosis. [facility] drug monitoring program reviewed and he is filling the Adderall regularly. Reviewed associated risks given history of substance abuse but will defer changes to his outpatient provider presently. As the hospital pharmacy does not carry the Adderall extended release formulation he will be converted to 30 mg of regular release twice a day temporarily (6) Hypertension 03/21/17 - start clonidine when necessary (7) Alcohol abuse 03/21/17 - Reports alcohol use 1-2 days per week. Abstinence encouraged. We'll watch for signs of withdrawal and initiate AWSS protocol if appropriate. For now I would like to minimize access to when necessary benzodiazepine and he is already on a relatively high dose of gabapentin. CPT Code Initial Hospital Care: 33389
[2017-03-21] MEDS: BuPROPion SR 100 MG TABCR PO SCH (11:14)
[2017-03-21] MEDS: QUETIAPINE FUMARATE 100 MG TAB PO SCH (11:14)
[2017-03-21] MEDS: GABAPENTIN 800 MG TAB PO SCH ×3 (11:15→21:11)
[2017-03-21] MEDS: CLONIDINE HCL 0.1 MG TAB PO PRN ×2 (11:15→21:16)
[2017-03-21] MEDS: AMPHETAMINE ASP/SULF/DEXTRAMPH 10 MG TAB PO SCH ×2 (11:36→14:53)
[2017-03-21] MEDS ORDERED: LOPERAMIDE HCL 2 MG CAP PO ONE (12:30)
[2017-03-21] MEDS: NICOTINE POLACRILEX 2 MG GUM MT PRN (14:36)
[2017-03-21] MEDS: LOPERAMIDE HCL 2 MG CAP PO PRN (16:36)
[2017-03-21] MEDS: OXCARBAZEPINE 150 MG TAB PO SCH (21:11)
[2017-03-21 21:17] VITALS: BP 133/85; PULSE 118
[2017-03-21] MEDS ORDERED: QUETIAPINE FUMARATE 100 MG TAB PO SCH (22:00)
[2017-03-22] MEDS: AMPHETAMINE ASP/SULF/DEXTRAMPH 10 MG TAB PO SCH (06:37)
[2017-03-22 07:02] VITALS: BP_SYST 124; BP_SYST 131; BP_DIAS 78; BP_DIAS 90; PULSE 81; PULSE 85; TEMP 36.5
[2017-03-22] MEDS: NICOTINE POLACRILEX 2 MG GUM MT PRN ×3 (07:07→08:26)
[2017-03-22] MEDS: BuPROPion SR 100 MG TABCR PO SCH (08:09)
[2017-03-22] MEDS: QUETIAPINE FUMARATE 100 MG TAB PO SCH ×2 (08:09→08:35)
[2017-03-22] MEDS: GABAPENTIN 800 MG TAB PO SCH (08:09)
[2017-03-22] MEDS: LORAZEPAM 0.5 MG TAB PO PRN (08:09)
[2017-03-22] MEDS: CLONIDINE HCL 0.1 MG TAB PO PRN (08:09)
[2017-03-22] MEDS: OXCARBAZEPINE 150 MG TAB PO SCH (08:26)
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
[2017-03-22] MEDS: LOPERAMIDE HCL 2 MG CAP PO PRN (09:44)
[2017-03-22] MEDS ORDERED: QUETIAPINE FUMARATE 100 MG TAB PO SCH ×3 (09:45→10:00)
[2017-03-22] MEDS ORDERED: OXCARBAZEPINE 150 MG TAB PO SCH ×2 (10:00→22:00)
[2017-03-22] MEDS ORDERED: BuPROPion SR 100 MG TABCR PO SCH ×2 (22:00)
== END 2017-03-22 10:33 | disposition home or self-care (01) | DRG 885 ==
LOC: EDUNIT# 19:42 → C.EDC 19:44 → C.MHU 03-21 02:51
PROVIDERS: ADMIT Student in an Organized Health Care Education/Training Program; ATTEND Student in an Organized Health Care Education/Training Program
DX: F31.9 Bipolar disorder, unspecified (principal); T43.8X2A Poisoning by other psychotropic drugs, intentional self-harm, initial encounter; F11.10 Opioid abuse, uncomplicated; F10.10 Alcohol abuse, uncomplicated; Z78.1 Physical restraint status; F98.8 Other specified behavioral and emotional disorders with onset usually occurring in childhood and adolescence; F60.2 Antisocial personality disorder; I10 Essential (primary) hypertension; B19.20 Unspecified viral hepatitis C without hepatic coma; F17.200 Nicotine dependence, unspecified, uncomplicated; Z79.899 Other long term (current) drug therapy; Z82.49 Family history of ischemic heart disease and other diseases of the circulatory system; Z83.3 Family history of diabetes mellitus; Z81.1 Family history of alcohol abuse and dependence; Z81.8 Family history of other mental and behavioral disorders

== ENCOUNTER 2017-05-20 18:37 | Observation (INO) | payer OTHER ==
[~2017-05-20] VITALS: Ht 172.7 cm; Wt 99.5 kg
[~2017-05-20 18:37] MED LIST changes: +AMPH30CA3 PO; +AMPH30TA2 PO; -BSP/10 PO; -BUPR150T47 PO; +BUPR200T2 PO; +BUSP15TA70 PO; +CLON0.1T12 PO; +GABA800T PO; +IMDSR/30 PO; +LORA-741 PO
--- NOTE | 2017-05-20 19:53 | EMERGENCY ROOM VISIT NOTE ---
History Report prepared by Sylvia: Clark Hare Under the Supervision of: Dr. Jeff Shi M.D. First contact with patient: 19:34 Chief Complaint: ALTERED MENTAL STATUS Stated Complaint: POSS. Nursing Triage Summary: Pt brought ALS from home, after grandmother called 911 concerned that pt may have overdosed, was not acting like his normal self, pacing, agitated. Pt has hx of drug abuse, suicide attempts. Pt denies overdosing today, denies hi/si. Pt verbally agressive with EMS, has not been combative. Police were on scene. No warrant. Per EMS an empty bottle for ativan was found, prescription was filled 04/23/17 for Ativan 0.5 mg tablets, ordered as 1 tablet by mouth two times daily as needed, 60 tablets. History of Present Illness The patient is a 27 year old male with a past medical history of antisocial personality disorder, ADD, bipolar disorder, drug abuse, and suicide attempts who presents to the ED with a cc of an episode of a possible intentional overdose occurring today. Per nursing note, the patient's grandmother thought that he overdosed today, prompting her call to EMS. The note states the patient was not acting normal, and appeared agitated and was pacing around the room. The note reports that the patient denies any suicidal and homicidal ideations. The note states that EMS found an empty bottle of Ativan. It notes that the patient's prescription was filled 04/23/2017 for Ativan 0.5mg tablets, ordered as 1 tablet by mouth twice daily as needed, 60 tablets. HPI limited secondary to AMS. Source of History: parent, other (nursing note) History Limited By: AMS Onset: today Position: other (global) Quality: other (possible intentional overdose) Timing: other (an episode) Note: The patient appeared agitated and was pacing around the room. Review of Systems ROS limited secondary to AMS. Past Medical & Surgical Medical Problems: (1) Antisocial personality disorder (2) Attention deficit disorder (ADD) in adult (3) Bipolar disorder (4) Bronchitis (5) Drug abuse (6) Drug overdose (7) Encephalopathy acute (8) Hypertension (9) Opiate abuse, episodic (10) Opioid dependence (11) Pneumonia Social History Problems: (1) Hepatitis C Family History FHx: alcoholism MOTHER FATHER FHx: diabetes FHx: heart disease FHx: hypertension Social History Smoking Status: Current Every Day Smoker Marital Status: single Housing Status: lives with friends Occupation Status: employed Current/Historical Medications Unable to Obtain Active Prescriptions or Reported Meds Allergies Coded Allergies: Aspirin (Verified Allergy, Severe, RESP DISTRESS-THROAT CLOSES-HIVES, ) Fish Allergy (Verified Allergy, Severe, RESPIRATORY DISTRESS-FACE SWELLS AND THROAT CLOSES UP, 03/20/17) Haloperidol (Verified Allergy, Severe, patient states "my throat closes", 03/20/17) Physical Exam Vital Signs Date Time Temp Pulse Resp B/P (MAP) Pulse Ox O2 Delivery O2 Flow Rate FiO2 05/20/17 22:37 87 16 98 05/20/17 22:30 83 20 108/67 98 Room Air 05/20/17 22:30 108/67 05/20/17 22:22 86 17 97 05/20/17 22:07 86 18 97 05/20/17 22:00 116/68 05/20/17 21:52 84 17 98 05/20/17 21:37 86 19 98 05/20/17 21:31 112/62 05/20/17 21:30 85 18 112/62 97 Nasal Cannula 2.0 05/20/17 21:22 89 19 98 05/20/17 21:10 91 05/20/17 20:30 91 18 123/70 98 Nasal Cannula 2.0 05/20/17 20:30 123/70 05/20/17 20:08 95 20 121/70 92 Nasal Cannula 4.0 05/20/17 19:36 95 Nasal Cannula 2.0 05/20/17 18:52 36.6 127 20 161/84 90 Room Air Physical Exam GENERAL: NAD, somnolent, arousable to painful stimuli HENT: Normocephalic, atraumatic. EYES: Normal conjunctiva. Sclera non-icteric. Exotropic eyes, pupils equally round and reactive to light. NECK: Supple. No nuchal rigidity. FROM. RESPIRATORY: CTAB, no rhonchi, wheezing, crackles CARDIAC: RRR, no MRG ABDOMEN: Soft, NTND, BS+ MSK: No chest wall TTP, no LE edema NEURO: GCS 10, moves all 4s to painful stimuli SKIN: No rash or jaundice noted. Medical Decision & Procedures ER Provider Diagnostic Interpretation: Radiology results as stated below per my review and radiologist interpretation: CHEST ONE VIEW PORTABLE FINDINGS: Lungs are hypoinflated with bronchovascular crowding. Hazy perihilar and bibasilar opacities are noted. Cardiac silhouette is within normal limits in size. No pneumothorax or pleural effusion. No lobar airspace consolidation. Bones of the chest appear grossly intact. IMPRESSION: Hypoinflation with bronchovascular crowding and probable bilateral atelectasis. The above report was generated using voice recognition software. It may contain grammatical, syntax or spelling errors. Electronically signed by: Joshua Julien M.D. 05/20/2017 8:06 PM HEAD WITHOUT CONTRAST (CT) FINDINGS: No acute intracranial hemorrhage, midline shift, intracranial mass, hydrocephalus, territorial ischemia or abnormal extra-axial collection. The calvarium is intact. Trace right mastoid effusion. Left mastoid air cells and paranasal sinuses appear generally clear. Soft tissues and orbits are unremarkable. IMPRESSION: No acute intracranial abnormality. The above report was generated using voice recognition software. It may contain grammatical, syntax or spelling errors. Electronically signed by: Joshua Julien M.D. 05/20/2017 9:02 PM Laboratory Results 05/20/17 19:57 Red Blood Count 4.30, Mean Corpuscular Volume 87.2, Mean Corpuscular Hemoglobin 31.6, Mean Corpuscular Hemoglobin Concent 36.3, Mean Platelet Volume 10.5, Neutrophils (%) (Auto) 66.5, Lymphocytes (%) (Auto) 22.0, Monocytes (%) (Auto) 9.9, Eosinophils (%) (Auto) 0.9, Basophils (%) (Auto) 0.3, Neutrophils # (Auto) 5.25, Lymphocytes # (Auto) 1.73, Monocytes # (Auto) 0.78, Eosinophils # (Auto) 0.07, Basophils # (Auto) 0.02 05/20/17 19:57 Test 05/20/17 18:54 05/20/17 19:57 05/20/17 20:48 Urine Color DK YELLOW Urine Appearance CLOUDY (CLEAR) Urine pH 5.0 (4.5-7.5) Urine Specific [place] 1.033 (1.000-1.030) Urine Protein NEG (NEG) Urine Glucose (UA) NEG (NEG) Urine Ketones TRACE (NEG) Urine Occult Blood NEG (NEG) Urine Nitrite NEG (NEG) Urine Bilirubin NEG (NEG) Urine Urobilinogen NEG (NEG) Urine Leukocyte Esterase NEG (NEG) Urine WBC (Auto) 1-5 /hpf (0-5) Urine RBC (Auto) 0-4 /hpf (0-4) Urine Hyaline Casts (Auto) 1-5 /lpf (0-5) Urine Epithelial Cells (Auto) 0-5 /lpf (0-5) Urine Bacteria (Auto) NEG (NEG) Urine Opiates Screen POS (NEG) Urine Methadone, Qualitative NEG (NEG) Urine Barbiturates NEG (NEG) Urine Phencyclidine (PCP) Level NEG (NEG) Ur Amphetamine/Methamphetamine POS (NEG) MDMA (Ecstasy) Screen POS (NEG) Urine Benzodiazepines Screen NEG (NEG) Urine Cocaine Metabolite NEG (NEG) Urine Marijuana (THC) NEG (NEG) White Blood Count 7.88 K/uL (4.8-10.8) Red Blood Count 4.30 M/uL (4.7-6.1) Hemoglobin 13.6 g/dL (14.0-18.0) Hematocrit 37.5 % (42-52) Mean Corpuscular Volume 87.2 fL (80-100) Mean Corpuscular Hemoglobin 31.6 pg (25-34) Mean Corpuscular Hemoglobin Concent 36.3 g/dl (32-36) Platelet Count 224 K/uL (130-400) Mean Platelet Volume 10.5 fL (7.4-10.4) Neutrophils (%) (Auto) 66.5 % Lymphocytes (%) (Auto) 22.0 % Monocytes (%) (Auto) 9.9 % Eosinophils (%) (Auto) 0.9 % Basophils (%) (Auto) 0.3 % Neutrophils # (Auto) 5.25 K/uL (1.4-6.5) Lymphocytes # (Auto) 1.73 K/uL (1.2-3.4) Monocytes # (Auto) 0.78 K/uL (0.11-0.59) Eosinophils # (Auto) 0.07 K/uL (0-0.5) Basophils # (Auto) 0.02 K/uL (0-0.2) RDW Standard Deviation 41.5 fL (36.4-46.3) RDW Coefficient of Variation 12.8 % (11.5-14.5) Immature Granulocyte % (Auto) 0.4 % Immature Granulocyte # (Auto) 0.03 K/uL (0.00-0.02) Anion Gap 6.0 mmol/L (3-11) Est Creatinine Clear Calc Drug Dose 119.0 ml/min Estimated GFR () 109.4 Estimated GFR (Non- 94.4 BUN/Creatinine Ratio 13.2 (10-20) Calcium Level 8.8 mg/dl (8.5-10.1) Total Bilirubin 0.5 mg/dl (0.2-1) Direct Bilirubin 0.1 mg/dl (0-0.2) Aspartate Amino Transf (AST/SGOT) 49 U/L (15-37) Alanine Aminotransferase (ALT/SGPT) 104 U/L (12-78) Alkaline Phosphatase 81 U/L (45-117) Total Protein 8.0 gm/dl (6.4-8.2) Albumin 3.8 gm/dl (3.4-5.0) Thyroid Stimulating Hormone (TSH) 1.910 uIu/ml (0.300-4.500) Salicylates Level < 1.7 mg/dl (2.8-20) Acetaminophen Level < 2 ug/ml (10-30) Ethyl Alcohol mg/dL < 3.0 mg/dl (0-3) Venous Blood pH 7.37 (7.36-7.41) Venous Blood Partial Pressure CO2 46 mmHg (38.0-50.0) Venous Blood Partial Pressure O2 86 mmHg Venous Blood HCO3 26 mmol/L Venous Blood Oxygen Saturation 96.2 % Venous Blood Base Excess -0.1 mEq/L Laboratory results reviewed by me ECG Per My Interpretation Indication: toxicologic Rate (beats per minute): 100 Rhythm: normal sinus Findings: other (Normal intervals, right axis deviation, no STS changes or TWI) ED Course 1939: The patient was evaluated in room A9. A complete history and physical exam was performed. 2024: I spoke to poison control. They recommend bicarb if the patient's QRS is wide. If the patient's QTC is long, they recommend to make sure that mag is greater than 2. They also recommend blood work and supportive cure. 2225: Upon reexamination, the patient was stable. I discussed the test results and treatment plan with him. Discussed the patient's case with Dr. Travis - Hospitalist, [facility]. The patient will be evaluated for further management. Medical Decision The patient is a 27 year old male with a past medical history of antisocial personality disorder, ADD, bipolar disorder, drug abuse, and suicide attempts who presents to the ED with a cc of an episode of a possible intentional overdose occurring today. Differential diagnosis: Etiologies such as toxicologic, infection, hypoglycemia, electrolyte abnormalities, cardiac sources, intracerebral event, neurologic, as well as others were entertained. Patient was seen and evaluated the bedside. Much of the history and physical exam is somewhat limited as the patient does have altered mental status. Patient reportedly was acting strangely at home. The grandmother was concerned and called the police. The patient had been verbally abusive but without any physical altercation. There was an empty bottle of 60 half milligram Ativan tablets that were filled approximately 1 month prior. Unknown as to whether or not he took these. On exam the patient does have a GCS of 10. Patient was protecting his airway. Patient did have blood work completed along with a urinalysis, urine drug screen, tox screen. [place] I did call poison control. If it was the Ativan, they did give the recommendations as discussed above. Patient's EKG was fairly unremarkable. Patient's blood work did show mild elevations in his LFTs and hypokalemia. Patient's urine drug screen did show positive for methamphetamines, MDMA, and opiates. The patient was still not very arousable but was protecting his airway and still moving all 4 extremities to painful stimuli. The patient may have been up for a fair amount of time either on ecstasy and methamphetamines and now he is very tired. Given that he would not be able to participate with a psychiatric evaluation at this time I did discuss the patient's case with the hospitalist who agreed to further evaluate and treat the patient. Of note the patient did have a CT scan that was negative acute along with a VBG which did not show hypercarbic respiratory failure. Head Trauma GCS Score: 10 Medication Reconcilliation Current Medication List: was personally reviewed by me Blood Pressure Screening Patient's blood pressure: Normal blood pressure Blood pressure disposition: Did not require urgent referral Consults Time Called: [id number] Consulting Physician: Dr. Travis & Dr. Oliva - [facility], [facility] Returned Call: [phone] Discussed the patient's case. The patient will be evaluated for further treatment and disposition. Impression Primary Impression: Overdose Additional Impressions: Drug abuse Altered mental status Hypokalemia Critical Care I have personally spent greater than 42 minutes of critical care time in the direct management of this patient. This includes bedside care, interpretation of diagnostic studies, and testing, discussion with consultants, patient, and family members, and other required patient management activities. This 42 minutes is in excess of all separately billable procedures. Scribe Attestation The scribe's documentation has been prepared under my direction and personally reviewed by me in its entirety. I confirm that the note above accurately reflects all work, treatment, procedures, and medical decision making performed by me. Departure Information Dispostion Being Evaluated By Hospitalist Prescriptions Unable to Obtain Active Prescriptions or Reported Meds Referrals No Doctor, Assigned (PCP) Patient Instructions My [facility] Problem Qualifiers Primary Impression: Overdose Encounter type: initial encounter Injury intent: undetermined intent Qualified Codes: T50.904A - Poisoning by unspecified drugs, medicaments and biological substances, undetermined, initial encounter Additional Impressions: Altered mental status Altered mental status type: coma Coma depth: [place] coma 9-12 Coma timing : at arrival to emergency department Qualified Codes: R40.2422 - [place] coma scale score 9-12, at arrival to emergency department
[2017-05-20] MEDS ORDERED: LORAZEPAM 2 MG/ML 1 ML VIAL IV STA (19:55)
[2017-05-20] MEDS ORDERED: HALOPERIDOL LACTATE 5 MG/ML 1 ML VIAL IV STA (19:55)
--- NOTE | 2017-05-20 20:07 | DIAGNOSTIC IMAGING REPORT ---
CHEST ONE VIEW PORTABLE HISTORY: 27 years-old Male Mood Disorder acute mood disorder COMPARISON: Chest radiograph 03/20/2017 TECHNIQUE: Portable AP view of the chest FINDINGS: Lungs are hypoinflated with bronchovascular crowding. Hazy perihilar and bibasilar opacities are noted. Cardiac silhouette is within normal limits in size. No pneumothorax or pleural effusion. No lobar airspace consolidation. Bones of the chest appear grossly intact. IMPRESSION: Hypoinflation with bronchovascular crowding and probable bilateral atelectasis. The above report was generated using voice recognition software. It may contain grammatical, syntax or spelling errors. Electronically signed by: Joshua Julien M.D. 05/20/2017 8:06 PM Dictated Date/Time: 05/20/2017 8:04 PM
[2017-05-20 20:21] LABS: BASO % 0.3 %; BASO ABS # 0.02 K/uL (0-0.2); EOS % 0.9 %; EOS ABS # 0.07 K/uL (0-0.5); HEMATOCRIT 37.5 % (42-52); HEMOGLOBIN 13.6 g/dL (14.0-18.0); IG# 0.03 K/uL (0.00-0.02); LYMPH ABS # 1.73 K/uL (1.2-3.4); MEAN CELL VOLUME 87.2 fL (80-100); MEAN CORPUSCULAR HEMOGLOBIN 31.6 pg (25-34); MEAN CORPUSCULAR HGB CONC 36.3 g/dl (32-36); MEAN PLATELET VOLUME 10.5 fL (7.4-10.4); MONO % 9.9 %; MONO ABS # 0.78 K/uL (0.11-0.59); NEUT % 66.5 %; NEUT ABS # 5.25 K/uL (1.4-6.5); PLATELET COUNT 224 K/uL (130-400); RED CELL DISTRIBUTION WIDTH CV 12.8 % (11.5-14.5); RED CELL DISTRIBUTION WIDTH SD 41.5 fL (36.4-46.3); WHITE BLOOD COUNT 7.88 K/uL (4.8-10.8)
[2017-05-20 20:48] LABS: ALBUMIN 3.8 gm/dl (3.4-5.0); CALCIUM 8.8 mg/dl (8.5-10.1); CREATININE 1.06 mg/dl (0.60-1.40); POTASSIUM 3.3 mmol/L (3.5-5.1)
--- NOTE | 2017-05-20 21:03 | DIAGNOSTIC IMAGING REPORT ---
HEAD WITHOUT CONTRAST (CT) CLINICAL HISTORY: 27 years-old Male with AMS, likely overdose. Acute altered mental status TECHNIQUE: Multiple axial CT images of the head were obtained without contrast. A dose lowering technique was utilized adhering to the principles of ALARA. CT DOSE: 1498.81 mGy.cm COMPARISON: CT head 07/23/2013. FINDINGS: No acute intracranial hemorrhage, midline shift, intracranial mass, hydrocephalus, territorial ischemia or abnormal extra-axial collection. The calvarium is intact. Trace right mastoid effusion. Left mastoid air cells and paranasal sinuses appear generally clear. Soft tissues and orbits are unremarkable. IMPRESSION: No acute intracranial abnormality. The above report was generated using voice recognition software. It may contain grammatical, syntax or spelling errors. Electronically signed by: Joshua Julien M.D. 05/20/2017 9:02 PM Dictated Date/Time: 05/20/2017 9:00 PM
[2017-05-20] MEDS ORDERED: ALUMINUM/MAGNESIUM/SIMETH (MAALOX MAX) 30 ML UDC PO PRN (22:45)
[2017-05-20] MEDS ORDERED: ONDANSETRON INJ 2 MG/ML 2 ML VIAL IV PRN (22:45)
[2017-05-20] MEDS ORDERED: POLYETHYLENE (MIRALAX) 17 GM PACK PO PRN (22:45)
[2017-05-20] MEDS ORDERED: ACETAMINOPHEN 325 MG TAB PO PRN (22:45)
[2017-05-20] MEDS ORDERED: IV FLUIDS COMPLETED PRN (23:00)
[2017-05-20 23:40] VITALS: BP 122/67; PULSE 88; TEMP 36.8; O2SAT 98; Ht 172.7 cm; Wt 99.5 kg
--- NOTE | 2017-05-21 00:15 | History and Physical ---
History & Physical Date & Time of Service: May 20, 2017 at 22:53 Chief Complaint: Poss. Primary Care Physician: No Doctor, Assigned History of Present Illness Source: patient, hospital records Patient is a 27 year old male with a history of antisocial disorder, Bipolar disorder, ADD, and drug abuse that presents to the ED by EMS with AMS. There is no history other than that provided by the grandmother who called EMS due to fear of drug overdose, and stating the patient had an empty bottle of Ativan next to his bed. She told EMS the patient was acting abnormally, appeared agitated, and was pacing. It was also reported that the patient denied any homicidal or suicidal ideations. The patients urine drug scree in the ED appears positive for only methamphetamines and opiates. The patient had been GCS 10 on admission, currently a 9 on exam (Eye opening to pain, incomprehensible sounds, and moves to localized pain). The patient was recently admitted for multiple Gabapentin pills while intoxicated with suicidal ideations. The patient is currently following with Dr. Ludwig and as per his most recent discharge his medications are listed below: Amphetamine-Dextroamphetamine 30MG (Adderall Xr 30MG), 30 MG PO QAM Bupropion (Wellbutrin Sr), 200 MG PO DAILY Buspirone Hcl (Buspar), 1 TAB PO BID Clonidine Hcl (Catapres), 1 TAB PO DAILY Gabapentin (Neurontin), 800 MG PO TID Isosorbide Mononitrate (Isosorbide Mononitrate ER), 1 TAB PO DAILY Oxcarbazepine (Trileptal), 150 MG PO BID Quetiapine Fumarate (Seroquel), 100 MG PO BID Past Medical/Surgical History Medical Problems: (1) Antisocial personality disorder (2) Attention deficit disorder (ADD) in adult (3) Bipolar disorder (4) Bronchitis (5) Hypertension (6) Opiate abuse, episodic (7) Opioid dependence (8) Pneumonia Social History Problems: (1) Hepatitis C Family History FHx: alcoholism MOTHER FATHER FHx: diabetes FHx: heart disease FHx: hypertension Social History Smoking Status: Current Every Day Smoker Smokeless Tobacco Use: No Alcohol Use: none Drug Use: none Marital Status: single Housing status: lives with family Occupational Status: employed Immunizations History of Influenza Vaccine: No History of Tetanus Vaccine?: Yes History of Pneumococcal: Yes History of Hepatitis B Vaccine: No Allergies Coded Allergies: Aspirin (Verified Allergy, Severe, RESP DISTRESS-THROAT CLOSES-HIVES, ) Fish Allergy (Verified Allergy, Severe, RESPIRATORY DISTRESS-FACE SWELLS AND THROAT CLOSES UP, 03/20/17) Haloperidol (Verified Allergy, Severe, patient states "my throat closes", 03/20/17) Home Medications Scheduled Amphetamine-Dextroamphetamine 20MG (Adderall 20MG), 20 MG PO TID Bupropion (Wellbutrin Sr), 200 MG PO DAILY Gabapentin (Neurontin), 800 MG PO TID Quetiapine Fumarate (Seroquel), 100 MG PO BID Scheduled PRN Lorazepam (Ativan), 0.5 MG PO BID PRN for Anxiety/Agitation Review of Systems Unable to obtain ROS due to patient being sedated Physical Exam Vital Signs Date Time Temp Pulse Resp B/P (MAP) Pulse Ox O2 Delivery O2 Flow Rate FiO2 05/20/17 22:30 83 20 108/67 98 Room Air 05/20/17 21:30 85 18 112/62 97 Nasal Cannula 2.0 05/20/17 21:10 91 05/20/17 20:30 91 18 123/70 98 Nasal Cannula 2.0 05/20/17 20:08 95 20 121/70 92 Nasal Cannula 4.0 05/20/17 19:36 95 Nasal Cannula 2.0 05/20/17 18:52 36.6 127 20 161/84 90 Room Air General Appearance: WD/WN, + pertinent finding (Patient sedated) Head: normocephalic, atraumatic Neck: supple, no carotid bruits Respiratory/Chest: chest non-tender, lungs clear, normal breath sounds Cardiovascular: regular rate, rhythm, no edema, no gallop, no murmur Abdomen/GI: normal bowel sounds, non tender, soft Extremities/Musculoskelatal: no pedal edema Neurologic/Psych: + pertinent finding (GCS 9: Sedated, Moves all 4 extremities to pain, incoherent speech) Diagnostics Laboratory Results Results Past 24 Hours Test 05/20/17 18:54 05/20/17 19:57 05/20/17 20:48 Range/Units Urine Color DK YELLOW Urine Appearance CLOUDY CLEAR Urine pH 5.0 4.5-7.5 Urine Specific [place] 1.033 1.000-1.030 Urine Protein NEG NEG Urine Glucose (UA) NEG NEG Urine Ketones TRACE NEG Urine Occult Blood NEG NEG Urine Nitrite NEG NEG Urine Bilirubin NEG NEG Urine Urobilinogen NEG NEG Urine Leukocyte Esterase NEG NEG Urine WBC (Auto) 1-5 0-5 /hpf Urine RBC (Auto) 0-4 0-4 /hpf Urine Hyaline Casts (Auto) 1-5 0-5 /lpf Urine Epithelial Cells (Auto) 0-5 0-5 /lpf Urine Bacteria (Auto) NEG NEG Urine Opiates Screen POS NEG Urine Methadone, Qualitative NEG NEG Urine Barbiturates NEG NEG Urine Phencyclidine (PCP) Level NEG NEG Ur Amphetamine/Methamphetamine POS NEG MDMA (Ecstasy) Screen POS NEG Urine Benzodiazepines Screen NEG NEG Urine Cocaine Metabolite NEG NEG Urine Marijuana (THC) NEG NEG White Blood Count 7.88 4.8-10.8 K/uL Red Blood Count 4.30 4.7-6.1 M/uL Hemoglobin 13.6 14.0-18.0 g/dL Hematocrit 37.5 42-52 % Mean Corpuscular Volume 87.2 80-100 fL Mean Corpuscular Hemoglobin 31.6 25-34 pg Mean Corpuscular Hemoglobin Concent 36.3 32-36 g/dl Platelet Count 224 130-400 K/uL Mean Platelet Volume 10.5 7.4-10.4 fL Neutrophils (%) (Auto) 66.5 % Lymphocytes (%) (Auto) 22.0 % Monocytes (%) (Auto) 9.9 % Eosinophils (%) (Auto) 0.9 % Basophils (%) (Auto) 0.3 % Neutrophils # (Auto) 5.25 1.4-6.5 K/uL Lymphocytes # (Auto) 1.73 1.2-3.4 K/uL Monocytes # (Auto) 0.78 0.11-0.59 K/uL Eosinophils # (Auto) 0.07 0-0.5 K/uL Basophils # (Auto) 0.02 0-0.2 K/uL RDW Standard Deviation 41.5 36.4-46.3 fL RDW Coefficient of Variation 12.8 11.5-14.5 % Immature Granulocyte % (Auto) 0.4 % Immature Granulocyte # (Auto) 0.03 0.00-0.02 K/uL Sodium Level 135 136-145 mmol/L Potassium Level 3.3 3.5-5.1 mmol/L Chloride Level 102 98-107 mmol/L Carbon Dioxide Level 27 21-32 mmol/L Anion Gap 6.0 3-11 mmol/L Blood Urea Nitrogen 14 7-18 mg/dl Creatinine 1.06 0.60-1.40 mg/dl Est Creatinine Clear Calc Drug Dose 119.0 ml/min Estimated GFR () 109.4 Estimated GFR (Non- 94.4 BUN/Creatinine Ratio 13.2 10-20 Random Glucose 82 70-99 mg/dl Calcium Level 8.8 8.5-10.1 mg/dl Total Bilirubin 0.5 0.2-1 mg/dl Direct Bilirubin 0.1 0-0.2 mg/dl Aspartate Amino Transf (AST/SGOT) 49 15-37 U/L Alanine Aminotransferase (ALT/SGPT) 104 12-78 U/L Alkaline Phosphatase 81 45-117 U/L Total Protein 8.0 6.4-8.2 gm/dl Albumin 3.8 3.4-5.0 gm/dl Thyroid Stimulating Hormone (TSH) 1.910 0.300-4.500 uIu/ml Salicylates Level < 1.7 2.8-20 mg/dl Acetaminophen Level < 2 10-30 ug/ml Ethyl Alcohol mg/dL < 3.0 0-3 mg/dl Venous Blood pH 7.37 7.36-7.41 Venous Blood Partial Pressure CO2 46 38.0-50.0 mmHg Venous Blood Partial Pressure O2 86 mmHg Venous Blood HCO3 26 mmol/L Venous Blood Oxygen Saturation 96.2 % Venous Blood Base Excess -0.1 mEq/L Impression Assessment and Plan Patient is a 27 year old male with a history of antisocial disorder, Bipolar disorder, ADD, and drug abuse that presents to the ED by EMS with AMS Acute Encephalopathy 2/2 Drug Ingestion - Medication from last visit includes: Adderall, Wellbutrin, BuSpar, Catapres, Neurontin, Isosorbide Mononitrate, Trileptal, and Seroquel - Head CT: No acute intracranial abnormalities - CXR: Hypoinflation with bronchovascular crowding and probable bilateral atelectasis - Drug Screen positive for Opiates and Methamphetamines - EKG: NSR, no ST changes, QT 456 - GCS of 9 at this time - Currently saturating well on room air - Aspiration Precautions --> Currently NPO - Neurochecks q4h - Observe on Telemetry - Holding all home Medications Hyponatremia/ Hypokalemia - NSS + 20 mEq K+ @ 125 mls/hr - Recheck BMP tomorrow AM - ALT/AST 104/49 Psychiatric Issues: ADD, Antisocial personality disorder, Bipolar disorder - Currently holding all home medications - Review updated med list with patient when alert and conscious - Consider psych consult DVT - SCDs Code Status - Full Resuscitation Attending addendum: I have physically seen this patient, have supervised the medical residents activities, and agree with the H&P unless as otherwise noted. Assessment and Plan: Altered mental status/acute encephalopathy/prescription drug overdose-- Admit to telemetry for frequent vitals and rhythm monitoring. Neurochecks every 4 hours. Patient is n.p.o. at this time. IV fluids for rehydration. Serial CBC with differential, chemistry profile and magnesium level in the a.m. Consult psychiatry Advanced Directives Existing Advance Directive: No Existing Living Will: No Existing Power of Stereotype Finisher: No Resuscitation Status Full Resuscitation VTE Prophylaxis Will order VTE Prophylaxis: Yes Resident Tracking Resident Involvement: Resident Care Provided Care Provided: Adult Hospital Medicine
[2017-05-21] MEDS ORDERED: POLYETHYLENE (MIRALAX) 17 GM PACK PO PRN (00:30)
[2017-05-21] MEDS ORDERED: ALUMINUM/MAGNESIUM/SIMETH (MAALOX MAX) 30 ML UDC PO PRN (00:30)
[2017-05-21] MEDS ORDERED: ACETAMINOPHEN 325 MG TAB PO PRN (00:30)
[2017-05-21] MEDS ORDERED: ONDANSETRON INJ 2 MG/ML 2 ML VIAL IV PRN (00:30)
[2017-05-21] MEDS: NSS + 20MEQ KCL 1000ML 1,000 ML IV SCH ×2 (00:38→08:29)
[2017-05-21 03:51] VITALS: TEMP 36.6
[2017-05-21 04:00] VITALS: O2SAT 98
[2017-05-21] MEDS ORDERED: INFLUENZA VIRUS QUAD VACCINE 0.5 ML SYR IM. ONE (06:15)
[2017-05-21] MEDS ORDERED: INFLUENZA ADMINISTRATION CHARGE ONE (06:15)
[2017-05-21 07:42] VITALS: BP 118/79; PULSE 85; TEMP 36.6; O2SAT 93
[2017-05-21] MEDS ORDERED: BUPR200T2 PO (09:04)
[2017-05-21] MEDS ORDERED: GABA800T PO (09:04)
[2017-05-21] MEDS ORDERED: QUET1TAB34 PO (09:04)
[2017-05-21] MEDS ORDERED: AMPH20TA2 PO (09:04)
[2017-05-21] MEDS ORDERED: LORA-741 PO (09:04)
[2017-05-21 09:39] VITALS: O2SAT 95
[2017-05-21] MEDS ORDERED: LORAZEPAM 0.5 MG TAB PO ONE (11:00)
--- NOTE | 2017-05-21 11:14 | Psychiatric Consultation ---
Consultation Date of Consultation May 21, 2017. Identifying Data 27-year-old gentleman with known history of antisocial personality disorder, bipolar disorder, who was brought to the emergency department by EMS last evening after an altercation at home and altered mental status with concern for overdose. The patient is admitted medically. Information is gathered from the patient and considered for the most part to be reliable. Chief Complaint "I popped open four [place]. ". History of Present Illness Patient is a 27-year-old gentleman known to our unit from consults and admissions to mental health. He has carried a diagnosis of bipolar disorder, and antisocial personality disorder. He was last on our mental health unit in March of this year after a similar incident in which she took an overdose of gabapentin under the influence of alcohol. He had a very brief hospitalization and was discharged home within 2 days. He is currently under the psychiatric care of Dr. Patiño, who is currently prescribing benzodiazepines, stimulants, Seroquel and apparently Neurontin. The patient says that he was at home yesterday. He lives with his girlfriend's parents and his 6-year-old son. He ended up drinking and says that he got drunk.Four Locos girlfriend's mother came home, noticed that he was altered, and he says they got into an argument. He told the liaison nurse earlier that the argument was about parenting styles. He says that his son was not there at the time he was drinking nor at the time of the argument. At some point his grandmother, Terri Alcala was present, who became concerned that he might have taken an overdose. It was she who summoned 911. He acknowledges that he should not be drinking on his medications , and when he does he "gets myself in trouble". He indicates that in general lately his mood has been "all right" but when he has to deal with other people he becomes angry saying "I hate people". He says he has had long-term problems with sleep, specifically difficulty staying asleep. His appetite has been up and he is hungry today requesting a second breakfast tray. He denies that he took an overdose of pills, denies that he is suicidal. He denies that he is having thoughts to harm anybody else. Notes from the ER indicates that EMS found a bottle of Ativan that was empty, filled date was April 23. According to the external med history, he had a new bottle of Ativan filled the first week of May. He says that he keeps the pills in a different location. He denies that he overdosed on the Ativan and denies that he overdosed on any other medicines, explaining his behavior by mixing alcohol with his regular medications. His drug screen is positive for MDMA which can be a false positive , amphetamines for which she has a prescription, and opiates. Past Psychiatric History Current OP Treatment: psychiatrist, behavioral health case manager Prior Psych [facility], other Access to a Gun: No Suicide Attempts: Yes (Overdose) Past Medication Trials Cogentin, Depakote, Vistaril, Concerta, Adderall, Ritalin, Risperdal, Trileptal , gabapentin, clonidine, Wellbutrin, Strattera Past Medical/Surgical History (1) Hepatitis C (2) Hypertension Allergies Allergies: Coded Allergies: Aspirin (Verified Allergy, Severe, RESP DISTRESS-THROAT CLOSES-HIVES, ) Fish Allergy (Verified Allergy, Severe, RESPIRATORY DISTRESS-FACE SWELLS AND THROAT CLOSES UP, 03/20/17) Haloperidol (Verified Allergy, Severe, patient states "my throat closes", 03/20/17) Home Medications Scheduled Amphetamine-Dextroamphetamine 20MG (Adderall 20MG), 20 MG PO TID Bupropion (Wellbutrin Sr), 200 MG PO DAILY Gabapentin (Neurontin), 800 MG PO TID Quetiapine Fumarate (Seroquel), 100 MG PO BID Scheduled PRN Lorazepam (Ativan), 0.5 MG PO BID PRN for Anxiety/Agitation Family History FHx: alcoholism MOTHER FATHER FHx: diabetes FHx: heart disease FHx: hypertension History of Suicide: No Psychiatric History: Yes (Both parents with unspecified mental illness) Alcohol Use Alcohol Use In Past 12 Months: Yes Smoking Use Smoking Status: Current Every Day Smoker Substance History Long history of opiate abuse including oxycodone, heroin and fentanyl. Marijuana. He has had multiple inpatient rehab stays and at least one stay at a custodial house. Personal History Lives in: [place] with the grandparents of his 6-year-old son Childhood: Moved around a lot growing up, being raised at times by mother, at times by father. Parents were never . He has 2 sisters. Relationship History: never Children: 6-year-old son, current girlfriend is Legal History: reported (Long history of legal encounters having recently just gotten out of [facility] for a multitude of charges including receiving stolen property, intimidation, theft by unlawful taking and more) Additional Comments: CYS report made with Jessica at [phone]. Patient informed of report prior to his discharge. Review of Systems Constitutional: denies no symptoms reported, denies see HPI, denies chills, denies diaphoresis, denies fever, denies malaise, denies weakness, denies other Eyes: denies: no symptoms, as stated in HPI, eye pain, tearing, itching, redness, discharge, double vision, visual changes, blurred vision, photophobia, other ENT: denies: no symptoms reported, see HPI, ear pain, ear discharge, loss of hearing, tinnitus, nasal pain, nasal congestion, rhinorrhea, epistaxis, sore throat, stidor, throat swelling, mouth pain, mouth swelling, dental pain, gum swelling, other Cardiovascular: denies: no symptoms reported, see HPI, chest pain, chest tightness, chest pressure, diaphoresis, palpitations, syncope, other Respiratory: reports: other, denies: no symptoms reported, see HPI, cough, orthopnea, short of breath, stridor, wheezing, sputum production, cyanosis, SAENZ , PND Gastrointestinal: other (Hungry) Genitourinary - Male: denies: no symptoms, see HPI, rash, amenorrhea, penile itching, penile discharge, testicular pain, testicular swelling, impotence, other Musculoskeletal: denies no symptoms reported, denies see HPI, denies back pain , denies gout, denies joint pain, denies joint swelling, denies muscle pain, denies muscle stiffness, denies neck pain, denies other Integumentary: denies no symptoms reported, denies see HPI, denies change in color, denies change in hair/nails, denies dryness, denies lesions, denies lumps , denies rash, denies other Neurologic: denies: no symptoms, see HPI, headache, numbness, paresthesias, pre -existing deficit, seizure, tingling, tremors, general weakness, tics, focal weakness, vertigo, lethargy, memory loss, dizziness, other Endocrine: denies: no symptoms, as stated in HPI, cold intolerance, heat intolerance, hair changes, goiter, polydipsia, polyuria, skin changes, other Hematologic / Lymphatic: denies: no symptoms, as stated in HPI, abnormal clotting, adenopathy, anemia, easy bleeding, easy bruising, gums bleeding, petechiae, other Examination Vital Signs Vital Signs Past 12 Hours Date Time Temp Pulse Resp B/P (MAP) Pulse Ox O2 Delivery O2 Flow Rate FiO2 05/21/17 09:39 95 Room Air 05/21/17 07:42 36.6 85 15 118/79 (92) 93 Room Air 05/21/17 04:00 98 Nasal Cannula 2.0 05/21/17 03:51 36.6 05/20/17 23:40 36.8 88 16 122/67 98 Room Air 05/20/17 23:07 86 16 99 Room Air 05/20/17 23:00 110/66 05/20/17 22:52 85 15 100 05/20/17 22:37 87 16 98 05/20/17 22:30 83 20 108/67 98 Room Air 05/20/17 22:30 108/67 05/20/17 22:22 86 17 97 Laboratory Results Last 24 Hours Test 05/20/17 18:54 05/20/17 19:57 05/20/17 20:48 Urine Color DK YELLOW Urine Appearance CLOUDY Urine pH 5.0 Urine Specific [place] 1.033 Urine Protein NEG Urine Glucose (UA) NEG Urine Ketones TRACE Urine Occult Blood NEG Urine Nitrite NEG Urine Bilirubin NEG Urine Urobilinogen NEG Urine Leukocyte Esterase NEG Urine WBC (Auto) 1-5 /hpf Urine RBC (Auto) 0-4 /hpf Urine Hyaline Casts (Auto) 1-5 /lpf Urine Epithelial Cells (Auto) 0-5 /lpf Urine Bacteria (Auto) NEG Urine Opiates Screen POS Urine Methadone, Qualitative NEG Urine Barbiturates NEG Urine Phencyclidine (PCP) Level NEG Ur Amphetamine/Methamphetamine POS MDMA (Ecstasy) Screen POS Urine Benzodiazepines Screen NEG Urine Cocaine Metabolite NEG Urine Marijuana (THC) NEG White Blood Count 7.88 K/uL Red Blood Count 4.30 M/uL Hemoglobin 13.6 g/dL Hematocrit 37.5 % Mean Corpuscular Volume 87.2 fL Mean Corpuscular Hemoglobin 31.6 pg Mean Corpuscular Hemoglobin Concent 36.3 g/dl Platelet Count 224 K/uL Mean Platelet Volume 10.5 fL Neutrophils (%) (Auto) 66.5 % Lymphocytes (%) (Auto) 22.0 % Monocytes (%) (Auto) 9.9 % Eosinophils (%) (Auto) 0.9 % Basophils (%) (Auto) 0.3 % Neutrophils # (Auto) 5.25 K/uL Lymphocytes # (Auto) 1.73 K/uL Monocytes # (Auto) 0.78 K/uL Eosinophils # (Auto) 0.07 K/uL Basophils # (Auto) 0.02 K/uL RDW Standard Deviation 41.5 fL RDW Coefficient of Variation 12.8 % Immature Granulocyte % (Auto) 0.4 % Immature Granulocyte # (Auto) 0.03 K/uL Sodium Level 135 mmol/L Potassium Level 3.3 mmol/L Chloride Level 102 mmol/L Carbon Dioxide Level 27 mmol/L Anion Gap 6.0 mmol/L Blood Urea Nitrogen 14 mg/dl Creatinine 1.06 mg/dl Est Creatinine Clear Calc Drug Dose 119.0 ml/min Estimated GFR () 109.4 Estimated GFR (Non- 94.4 BUN/Creatinine Ratio 13.2 Random Glucose 82 mg/dl Calcium Level 8.8 mg/dl Total Bilirubin 0.5 mg/dl Direct Bilirubin 0.1 mg/dl Aspartate Amino Transf (AST/SGOT) 49 U/L Alanine Aminotransferase (ALT/SGPT) 104 U/L Alkaline Phosphatase 81 U/L Total Protein 8.0 gm/dl Albumin 3.8 gm/dl Thyroid Stimulating Hormone (TSH) 1.910 uIu/ml Salicylates Level < 1.7 mg/dl Acetaminophen Level < 2 ug/ml Ethyl Alcohol mg/dL < 3.0 mg/dl Venous Blood pH 7.37 Venous Blood Partial Pressure CO2 46 mmHg Venous Blood Partial Pressure O2 86 mmHg Venous Blood HCO3 26 mmol/L Venous Blood Oxygen Saturation 96.2 % Venous Blood Base Excess -0.1 mEq/L Mental Examination During interview pt is: alert and oriented, cooperative Appearance: appropriately groomed Eye contact is: fair Motor behavior is: psychomotor agitation (Stands during the interview moving his feet back and forth) Speech: normal in rate, rhythm & volume, other (When I return a second time to obtain additional information he is angry and swearing) Affect: irritable Mood is: irritable Thought process: goal directed Thought content: reality based without delusions Suicidal thought are: denied Homicidal thoughts are: denied Hallucinations: denies auditory, denies visual Cognition: attention grossly intact, language grossly intact Intelligence estimated to be: below average Insight: limited Judgement: limited Impression / Recommendations Impression 27-year-old gentleman admitted medically due to concerns he overdosed. His story today is that he drank and took his regular medications which include stimulants, benzodiazepines, Neurontin and Wellbutrin, resulting in an altered mental status. He apparently got into an argument with whoever was at home, precipitating the call to 911. I have left a message with his grandmother Terri Alcala, since the ER record indicates that it was his grandmother who offered concerns. This may be a mistake and it may be the grandmother of his 6- year-old son, and this will need to be clarified. His version of the story is consistent with his behavior in the past. He has a long history of substance abuse, says that he drank, took his medications and was drunk and altered. His presentation could be consistent with that. He denies that he overdosed and is not suicidal. I am clearly seeing the antisocial personality disorder in my interaction. He admits he hates people, drinks when he wants to despite recommendations not to with his medications, resulting in disinhibition and arguing. Admitting him to a mental health facility will not change this antisocial personality disorder. I have now spoken with his grandmother, Terri who tells me thatBu, she received a call from his 6-year-old son Jesse while she was on her way home. Jesse told her that Tirso was "out of his mind" talking about a person from [employer], and telling him somebody was there that was not. When Terri arrived home, he was sitting on the couch, eyes drooping, mouth open. He got up to try to make noodles of noodles and could not even figure out how to do it. She became concerned about an overdose and called 911. She denies that he has been depressed, making suicidal statements. She has actually seen him to be doing pretty well recently. She went to his room, reviewed the medicine bottles they are found 3 bottles of Seroquel (likely not taking), one bottle of generic sleep aid, a bottle of gabapentin and his stimulants. She could not find his most recent bottle of benzodiazepines. Although her was home at the time, she notes that he has been in the hospital for times recently for cellulitis, fractured arm, and Tirso was in large part to have been responsible for his son. This in and of itself requires a report to children and youth services as the patient was under the influence of substances while supposedly in charge of his son. At this point, patient does not meet criteria for involuntary emergency mental health treatment, And psychiatrically can be discharged when medically cleared. We recommend that he not have access to controlled substances in view of his persistent substance use issues, including benzodiazepines and stimulants. We have made this recommendation repeatedly to his outpatient psychiatric provider. I will inform him of the necessity of the CYS report. This will likely Insight anger on his part. If any further threats of physical violence I would suggest the police be called. Risk Factors Assessment Male: Yes : Yes /single/: Yes Access to guns: No Health problems: No Mental Health Diagnoses: Yes Substance use disorders: Yes Previous attempt: Yes Smoker: Yes Protective Factors Assessment Responsible for young children: Yes Employed: No Recommendations (1) Altered mental status 05/21 -The patient meets no criteria for emergency involuntary mental health treatment and psychiatrically can be discharged when medically cleared -I will be making a mandatory CYS report in view of the fact the patient was under the influence of substances while watching his son -I recommend the patient not have access to controlled substances in view of significant substance use history. We have made this recommendation repeatedly in the past to his outpatient provider, Dr. Patiño. Dr. Ban bender has personally been involved in the review of this case and development of these recommendations.
--- NOTE | 2017-05-21 11:31 | Discharge Instructions ---
Discharge Instructions Date of Service May 21, 2017. Admission Reason for Admission: Drug Overdose, Encephalopathy Discharge Discharge Diagnosis / Problem: Alcohol intoxication Discharge Goals Goal(s): Improve disease control Activity Recommendations Activity Limitations: per Instructions/Follow-up section Lifting Limitations: no more than 10 pounds Exercise/Sports Limitations: as tolerated Shower/Bathe: no limitations . Instructions / Follow-Up Instructions / Follow-Up Follow up with your Psychiatrist to review your Psych medications No changes were made to your current medications. No prescriptions were sent to your pharmacy either. Please do not drink alcohol as these can have dangerous side effects with your medications. Current Hospital Diet Patient's current hospital diet: Regular Diet Discharge Diet Recommended Diet: Regular Diet Pending Studies Studies pending at discharge: no Medical Emergencies . Who to Call and When: Medical Emergencies: If at any time you feel your situation is an emergency, please call 911 immediately. . Non-Emergent Contact Non-Emergency issues call your: Primary Care Provider . . "Provider Documentation" section prepared by Mary Garrett. .
[2017-05-21 11:38] VITALS: BP 118/79; PULSE 85; TEMP 36.6; O2SAT 95
--- NOTE | 2017-05-21 11:50 | Discharge Summary ---
Discharge Summary Date of Service May 21, 2017. Discharge Summary Admission Date: May 20, 2017 at 22:44 Discharge Date: May 21, 2017 Discharge Disposition: Home Principal Diagnosis: Alcohol intoxication Immunizations: Have You Had Influenza Vaccine: No History of Tetanus Vaccine?: Yes History of Pneumococcal: Yes History of Hepatitis B Vaccine: No Consultations: Psychiatry Medication Reconciliation Continued Medications: Amphetamine-Dextroamphetamine 20MG (Adderall 20MG) 1 Tab Tab 20 MG PO TID Bupropion (Wellbutrin Sr) 200 Mg Ertab 200 MG PO DAILY Gabapentin (Neurontin) 800 Mg Tab 800 MG PO TID Lorazepam (Ativan) 0.5 Mg Tab 0.5 MG PO BID PRN for Anxiety/Agitation Quetiapine Fumarate (Seroquel) 100 Mg Tab 100 MG PO BID Discharge Exam Review of Systems: Constitutional: No fever, No chills, No sweats Eyes: No worsening of vision, No eye pain ENT: No hearing loss Respiratory: No cough, No sputum, No wheezing Cardiovascular: No chest pain, No orthopnea Abdomen: No pain, No nausea, No vomiting Musculoskeletal: No joint pain Genitourinary - Male: No hematuria, No dysuria, No urinary frequency, No urinary urgency Neurologic: No memory loss, No paralysis, No weakness Psychiatric: No depression symptoms Endocrine: No fatigue Integumentary: No rash Physical Exam: General Appearance: WD/WN, no apparent distress Eyes: normal inspection, PERRL ENT: hearing grossly normal Neck: supple, no JVD Respiratory/Chest: lungs clear, normal breath sounds, no respiratory distress Cardiovascular: regular rate, rhythm, no murmur, normal peripheral pulses Abdomen / GI: normal bowel sounds, non tender, soft Extremities: no calf tenderness, no pedal edema Neurologic/Psychiatric: alert, normal mood/affect, oriented x 3 Skin: no rash Hospital Course HPI, per Psych Sandy Jara: Patient is a 27-year-old gentleman known to our unit from consults and admissions to mental health. He has carried a diagnosis of bipolar disorder, and antisocial personality disorder. He was last on our mental health unit in March of this year after a similar incident in which she took an overdose of gabapentin under the influence of alcohol. He had a very brief hospitalization and was discharged home within 2 days. He is currently under the psychiatric care of Dr. Patiño, who is currently prescribing benzodiazepines, stimulants, Seroquel and apparently Neurontin. The patient says that he was at home yesterday. He lives with his girlfriend's parents and his 6-year-old son. He ended up drinking and says that he got drunk.Four [place] girlfriend's mother came home, noticed that he was altered, and he says they got into an argument. He told the liaison nurse earlier that the argument was about parenting styles. He says that his son was not there at the time he was drinking nor at the time of the argument. At some point his grandmother, Terri Alcala was present, who became concerned that he might have taken an overdose. It was she who summoned 911. He acknowledges that he should not be drinking on his medications , and when he does he "gets myself in trouble". He indicates that in general lately his mood has been "all right" but when he has to deal with other people he becomes angry saying "I hate people". He says he has had long-term problems with sleep, specifically difficulty staying asleep. His appetite has been up and he is hungry today requesting a second breakfast tray. He denies that he took an overdose of pills, denies that he is suicidal. He denies that he is having thoughts to harm anybody else. Notes from the ER indicates that EMS found a bottle of Ativan that was empty, filled date was April 23. According to the external med history, he had a new bottle of Ativan filled the first week of May. He says that he keeps the pills in a different location. He denies that he overdosed on the Ativan and denies that he overdosed on any other medicines, explaining his behavior by mixing alcohol with his regular medications. His drug screen is positive for MDMA which can be a false positive , amphetamines for which she has a prescription, and opiates. HOSPITAL COURSE: Patient is a 27 year old male with a history of antisocial disorder, Bipolar disorder, ADD, and drug abuse that presents to the ED by EMS with AMS Acute Encephalopathy 2/2 Alcohol and potential Drug Ingestion - Medication from last visit includes: Adderall, Wellbutrin, BuSpar, Catapres, Neurontin, Isosorbide Mononitrate, Trileptal, and Seroquel - Head CT: No acute intracranial abnormalities - CXR: Hypoinflation with bronchovascular crowding and probable bilateral atelectasis - Drug Screen positive for Opiates and Methamphetamines (Methamphetamines likely positive from Adderral use) - EKG: NSR, no ST changes, QT 456 - GCS of 9 at time of admission, 15 by time of DC - Observed on telemetry overnight without any issue - CYS report was filed by Psych Hyponatremia/ Hypokalemia - Repleted K+ overnight with IV fluids Psychiatric Issues: ADD, Antisocial personality disorder, Bipolar disorder - Reviewed by Psych, he did not meet criteria for admission DVT - SCDs Code Status - Full Resuscitation Resident Physician Supervision Note: I interviewed and examined the patient. Discussed with Dr. Garrett and agree with findings and plan as documented in the note. Any exceptions or clarifications are listed here: None This patient presented in altered state reportedly from taking prescription medications and alcohol. He was seen by our psychiatric department does not feel he is a danger to himself there was some concern however as he was supposedly charged to care for her child during this time psychiatry was taken upon himself soon at the appropriate agencies in regard to this I did see the patient at the bedside he offered pressured speech and seems slightly agitated although he appeared to be clear mentation and oriented Patient be discharged home to resume his usual psychiatric medications with recommendations for strong abstinence from alcohol and following up with his psychiatric medication prescriptive provider Documented By: Spencer Horvath Total Time Spent: Greater than 30 minutes This includes examination of the patient, discharge planning, medication reconciliation, and communication with other providers. Discharge Instructions Please refer to the electronic Patient Visit Report (Discharge Instructions) for additional information. Follow-Up With his outpatient Psychiatrist - strongly recommend pt is not on [facility] Additional Copies To Blanca Patiño M.D. Resident Tracking Resident Involvement: Resident Care Provided Care Provided: [facility]
[2017-05-21 11:52] VITALS: BP 155/98; PULSE 111; TEMP 36.6; O2SAT 97
[2017-05-21] MEDS ORDERED: GABAPENTIN 800 MG TAB PO SCH (14:00)
[2017-05-21] MEDS ORDERED: QUETIAPINE FUMARATE 100 MG TAB PO SCH (21:00)
== END 2017-05-21 12:22 | disposition home or self-care (01) ==
LOC: C.EDA 18:37 → EDBD 18:37 → C.2E 22:44 → ENRESERV 22:53
PROVIDERS: ADMIT Student in an Organized Health Care Education/Training Program; ATTEND Hospitalist
DX: F10.129 Alcohol abuse with intoxication, unspecified (principal); F31.9 Bipolar disorder, unspecified; F60.2 Antisocial personality disorder; F90.9 Attention-deficit hyperactivity disorder, unspecified type; I10 Essential (primary) hypertension; Z79.899 Other long term (current) drug therapy; Z86.19 Personal history of other infectious and parasitic diseases; Z87.01 Personal history of pneumonia (recurrent); F17.200 Nicotine dependence, unspecified, uncomplicated; Z91.013 Allergy to seafood; Z88.8 Allergy status to other drugs, medicaments and biological substances; Z82.49 Family history of ischemic heart disease and other diseases of the circulatory system; Z83.3 Family history of diabetes mellitus

== ENCOUNTER 2017-07-19 19:38 | Emergency (ER) | payer OTHER ==
[~2017-07-19] VITALS: Ht 172.7 cm; Wt 97.3 kg
[~2017-07-19 19:38] MED LIST changes: +AMPH20TA2 PO; -AMPH30CA3 PO; -AMPH30TA2 PO; -BUSP15TA70 PO; -CLON0.1T12 PO; -IMDSR/30 PO; -OXCA150T2 PO
[2017-07-19 19:42] VITALS: TEMP 36.7; Ht 172.7 cm; Wt 97.3 kg
[2017-07-19] MEDS ORDERED: OXYCODONE/ACETAMINOPHEN 5-325 TAB PO STA (20:13)
--- NOTE | 2017-07-19 20:47 | DIAGNOSTIC IMAGING REPORT ---
L KNEE 3 VIEWS CLINICAL HISTORY: L knee pain pain COMPARISON: None. DISCUSSION: The bones and joint spaces appear intact. There is no evidence of fracture, dislocation or bony disease. Small joint effusion IMPRESSION: Small joint effusion. Otherwise negative study. The above report was generated using voice recognition software. It may contain grammatical, syntax or spelling errors. Electronically signed by: Mario Galdamez M.D. 07/19/2017 8:45 PM Dictated Date/Time: 07/19/2017 8:45 PM
--- NOTE | 2017-07-19 21:17 | EMERGENCY ROOM VISIT NOTE ---
ED Visit Note First contact with patient: 19:47 CHIEF COMPLAINT: Left knee pain HISTORY OF PRESENT ILLNESS: This 27-year-old male patient presents to the emergency department 1 day after sustaining an injury to the left knee. The patient was walking when he accidentally missed a step and hyperextending the knee. The patient denies any other injuries besides their knee. The patient reports a severe, stabbing pain in the back of his knee and on the inside of his knee. He is not able to bear weight on the knee. He denies any prior injuries to the knee. He denies any pain into his ankle, foot or hip. He has tried Aleve with minimal relief. REVIEW OF SYSTEMS: A 6 system review of systems was completed with positives and pertinent negatives listed in the HPI. ALLERGIES: Haldol, aspirin MEDICATIONS: Reviewed PMH: Bipolar disorder, suicidal ideation SOCIAL HISTORY: Denies tobacco or drug use PHYSICAL EXAM: Vital Signs: Reviewed Nurse's notes, vital signs stable. GENERAL : 27-year-old male, no acute distress, but appears in pain, well-developed, well -nourished. MENTAL STATUS: Alert, oriented to person place and time, and cooperative. MUSCULOSKELETAL: The left knee is mildly swollen. There is no ecchymosis. There is no joint effusion present. The patient is tender over the posterior aspect and the medial aspect of the knee. There is minimal joint line tenderness. The patella does not subluxate. Range of motion is severely limited secondary to pain. Strength of the quads and hamstrings is 5/5. Severe pain with varus and valgus stress. No ligamentous instability appreciated, however the exam is limited secondary to pain. The foot and toes are warm and well- perfused. Dorsalis pedis pulse 2+. Sensation to pain and light touch is intact. Capillary refill less than 2 seconds. EMERGENCY DEPARTMENT COURSE: I examined the patient. He was medicated with 1 Percocet. X-rays of the left knee were reviewed by myself and read by radiology IMPRESSION: Small joint effusion. Otherwise negative study. The above report was generated using voice recognition software. It may contain grammatical, syntax or spelling errors. Electronically signed by: Mario Galdamez M.D. 07/19/2017 8:45 PM Dictated Date/Time: 07/19/2017 8:45 PM . The patient was placed in a knee immobilizer under my direction and the position was satisfactory. The patient was instructed on the use of crutches. The patient was discharged home in good condition. DIAGNOSIS: Left knee injury DISCHARGE INSTRUCTIONS: Ice and elevate knee for swelling and pain. Wear knee immobilizer when up and about. Use crutches - minimal weight on foot. Ibuprofen 600 mg every 6 hours Percocet 1-2 tabs every 4 hours for severe pain. Do not drink alcohol or drive while taking this medication. This may be taken with ibuprofen, but avoid Tylenol. Please call the orthopedic doctor in the morning for a follow-up appointment Do not hesitate to return to the emergency department with any new, worsening or concerning symptoms It was a pleasure participating in your care today This chart was completed in part utilizing [employer] Voice Recognition software. Attempts were made to minimize the grammatical errors, random word insertions, pronoun errors and incomplete sentences. Any formal questions or concerns about the content, text or information contained within the body of this dictation should be directly addressed to the provider for clarification.
[2017-07-19] MEDS ORDERED: OXYC-57 PO (21:25)
[2017-07-19] MEDS ORDERED: PERCOCET HOME PACK PO ONE (21:30)
[2017-07-19 21:34] VITALS: BP 120/71; PULSE 95; O2SAT 98
== END 2017-07-19 21:36 | disposition home or self-care (01) ==
LOC: C.EDB 19:40 → C.EDD 21:36
DX: S89.92XA Unspecified injury of left lower leg, initial encounter (principal); M25.562 Pain in left knee; X50.9XXA Other and unspecified overexertion or strenuous movements or postures, initial encounter; Y93.01 Activity, walking, marching and hiking

== ENCOUNTER 2017-11-03 13:50 | Emergency (ER) | payer OTHER ==
[~2017-11-03] VITALS: Ht 172.7 cm; Wt 95.7 kg
[~2017-11-03 13:50] MED LIST changes: -AMPH20TA2 PO; -LORA-741 PO
[2017-11-03 14:00] VITALS: TEMP 37; Ht 172.7 cm; Wt 95.7 kg
[2017-11-03] MEDS ORDERED: MoRPHine SULFATE 4 MG/ML 1 ML CARP\\VIAL IV STA (14:36)
--- NOTE | 2017-11-03 14:57 | EMERGENCY ROOM VISIT NOTE ---
History First contact with patient: 14:25 Chief Complaint: URINARY SYMPTOMS Stated Complaint: BLOOD IN URINE,BACK PAIN History of Present Illness The patient is a 27 year old male who presents to the Emergency Room with complaints of hematuria this morning. Initially there was no dysuria but now pt states he has increased urinary urgency and dysuria. Pt states that his hematuria has resolved but did show me a picture on his phone of a clot in the toilet bowl. He also reports back pain starting yesterday evening - he couldn't find a comfortable position to sleep. There is pain in all positions. Sitting and standing make the pain worse. There is no radiation to the left or right. Pt states that he has a fullness as if he needs to have a bowel movement. Pt did have a BM earlier in the day without relief of his symptoms. Pt states that he is sexually active There are no concerns regarding gonorrhea and chlamydia. Pt has never had a UTI or kidney stone in the past. ROS: No fevers, no chills. No scrotal tenderness. No penile discharge. Shx: Has a child. Source of History: patient Onset: this morning Symptom Intensity: severe Quality: pressure Timing: constant Modifying Factors (Worsening): movement Modifying Factors (Relieving): rest Associated Symptoms: No LOC, No fevers, No chills, No headache, No chest pain, No diarrhea Review of Systems See HPI for pertinent positives and negatives. A total of ten systems were reviewed and were otherwise negative. Constitutional: No fever, No chills ENT: No hearing loss Respiratory: No cough, No sputum, No wheezing, No shortness of breath Cardiovascular: No chest pain Abdomen: + pain, No nausea, No vomiting, No diarrhea, No constipation Musculoskeletal: + joint pain (lumbar back pain) Genitourinary - Male: + hematuria, + dysuria, + urinary frequency, No urinary urgency, No urinary hesitancy, No urinary retention, No urinary incontinence Past Medical/Surgical History Medical Problems: (1) Altered mental status (2) Antisocial personality disorder (3) Attention deficit disorder (ADD) in adult (4) Bronchitis (5) Drug abuse (6) Drug overdose (7) Encephalopathy acute (8) History of intravenous drug abuse (9) Hypertension (10) Opiate abuse, episodic (11) Opioid dependence (12) Pneumonia Social History Problems: (1) Hepatitis C Family History FHx: alcoholism MOTHER FATHER FHx: diabetes FHx: heart disease FHx: hypertension Social History Smoking Status: Current Every Day Smoker Alcohol Use: none Drug Use: none Marital Status: single Housing Status: lives with friends Occupation Status: employed Current/Historical Medications Scheduled Amphetamine-Dextroamphetamine 20MG (Adderall 20MG), 20 MG PO BID Bupropion (Wellbutrin Sr), 200 MG PO DAILY Gabapentin (Gabapentin), 800 MG PO TID Quetiapine Fumarate (Seroquel), 100 MG PO BID Physical Exam Vital Signs Date Time Temp Pulse Resp B/P (MAP) Pulse Ox O2 Delivery O2 Flow Rate FiO2 11/03/17 15:46 95 16 145/96 99 Room Air 11/03/17 14:00 37.0 111 19 151/99 98 Room Air Physical Exam Gen: No acute distress. HEENT: Head - normocephalic and atraumatic. Pupils are equal, round, and reactive to light. Extraocular eye muscles are intact and sclera are anicteric. Ears - bilaterally patent canals with noninjected tympanic membranes and no evidence of hemotympanum. Nose - moist nasal mucosa without discharge. Mouth - moist buccal mucosa. Oropharynx is nonerythematous and there is no tonsillar exudate or edema noted. Neck: Supple; no JVD, nuchal rigidity, cervical lymphadenopathy, or auscultated bruits. Heart: Regular rate and rhythm. There is a normal S1 and S2 with no murmurs, clicks, or gallops appreciated. Lungs: Clear to auscultation bilaterally with no wheezes, rales, or rhonchi. Abdomen: Soft, mild suprapubic tenderness, nondistended, with good bowel sounds. There are no palpable pulsatile masses or hepatosplenomegaly. There is no guarding, rigidity, or rebound noted. Extremities: No evidence of cyanosis, clubbing, or edema. There are easily palpable peripheral pulses. Right sided CVA tenderness. Neuro:The patient is awake and alert, oriented to day, time, and place. Muscle strength is 5/5 in all 4 extremities. 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 There are no cerebellar signs. Medical Decision & Procedures ER Provider Diagnostic Interpretation: CT OF THE ABDOMEN AND PELVIS WITHOUT CONTRAST, STONE PROTOCOL CLINICAL HISTORY: Hematuria, right flank tenderness. COMPARISON STUDY: CT of the abdomen and pelvis May 15, 2008. TECHNIQUE: Helical axial images of the abdomen and pelvis were obtained without IV or oral contrast according to renal stone protocol. A dose lowering technique was utilized adhering to the principles of ALARA. FINDINGS: Lung bases are clear. There is a probable punctate left renal calculus. There are no ureteral calculi and there is no hydronephrosis. Evaluation of the remainder of the abdomen and pelvis is suboptimal on this unenhanced exam. The liver, adrenal glands and pancreas are normal. There is borderline splenomegaly. No peripancreatic or pericholecystic infiltration is present. No pneumatosis, free air or portal venous gas is present. There is no evidence for a bowel obstruction. The appendix is normal. There is no ascites or lymphadenopathy. IMPRESSION: 1. No ureteral calculi or hydronephrosis. Probable punctate left renal calculus. 2. No bowel obstruction. Normal appendix. 3. No acute process within the abdomen or pelvis on unenhanced exam. Laboratory Results 11/03/17 14:55 Red Blood Count 4.82, Mean Corpuscular Volume 88.0, Mean Corpuscular Hemoglobin 32.0, Mean Corpuscular Hemoglobin Concent 36.3, Mean Platelet Volume 11.4, Neutrophils (%) (Auto) 70.7, Lymphocytes (%) (Auto) 24.1, Monocytes (%) (Auto) 4.2, Eosinophils (%) (Auto) 0.3, Basophils (%) (Auto) 0.2, Neutrophils # (Auto) 9.14, Lymphocytes # (Auto) 3.11, Monocytes # (Auto) 0.54, Eosinophils # (Auto) 0.04, Basophils # (Auto) 0.02 11/03/17 14:55 Test 11/03/17 14:36 11/03/17 14:55 11/03/17 15:08 White Blood Count 12.91 K/uL (4.8-10.8) Red Blood Count 4.82 M/uL (4.7-6.1) Hemoglobin 15.4 g/dL (14.0-18.0) Hematocrit 42.4 % (42-52) Mean Corpuscular Volume 88.0 fL (80-100) Mean Corpuscular Hemoglobin 32.0 pg (25-34) Mean Corpuscular Hemoglobin Concent 36.3 g/dl (32-36) Platelet Count 282 K/uL (130-400) Mean Platelet Volume 11.4 fL (7.4-10.4) Neutrophils (%) (Auto) 70.7 % Lymphocytes (%) (Auto) 24.1 % Monocytes (%) (Auto) 4.2 % Eosinophils (%) (Auto) 0.3 % Basophils (%) (Auto) 0.2 % Neutrophils # (Auto) 9.14 K/uL (1.4-6.5) Lymphocytes # (Auto) 3.11 K/uL (1.2-3.4) Monocytes # (Auto) 0.54 K/uL (0.11-0.59) Eosinophils # (Auto) 0.04 K/uL (0-0.5) Basophils # (Auto) 0.02 K/uL (0-0.2) RDW Standard Deviation 45.3 fL (36.4-46.3) RDW Coefficient of Variation 14.1 % (11.5-14.5) Immature Granulocyte % (Auto) 0.5 % Immature Granulocyte # (Auto) 0.06 K/uL (0.00-0.02) Urine Color YELLOW Urine Appearance CLEAR (CLEAR) Urine pH 8.5 (4.5-7.5) Urine Specific [place] 1.018 (1.000-1.030) Urine Protein NEG (NEG) Urine Glucose (UA) NEG (NEG) Urine Ketones NEG (NEG) Urine Occult Blood NEG (NEG) Urine Nitrite NEG (NEG) Urine Bilirubin NEG (NEG) Urine Urobilinogen NEG (NEG) Urine Leukocyte Esterase NEG (NEG) Anion Gap 9.0 mmol/L (3-11) Est Creatinine Clear Calc Drug Dose 138.9 ml/min Estimated GFR () 134.5 Estimated GFR (Non- 116.1 BUN/Creatinine Ratio 10.0 (10-20) Calcium Level 9.7 mg/dl (8.5-10.1) Total Bilirubin 0.3 mg/dl (0.2-1) Aspartate Amino Transf (AST/SGOT) 36 U/L (15-37) Alanine Aminotransferase (ALT/SGPT) 85 U/L (12-78) Alkaline Phosphatase 88 U/L (45-117) Total Protein 9.2 gm/dl (6.4-8.2) Albumin 4.4 gm/dl (3.4-5.0) Globulin 4.8 gm/dl (2.5-4.0) Albumin/Globulin Ratio 0.9 (0.9-2) Bedside Troponin I < 0.030 ng/ml (0-0.045) Medications Administered Medications (Trade) Dose Ordered Sig/Elizabeth Route Start Time Stop Time Status Last Admin Dose Admin Morphine Sulfate (MoRPHine SULFATE INJ) 4 mg NOW STAT IV 11/03/17 14:36 11/03/17 14:42 DC 11/03/17 14:36 4 MG Ketorolac Tromethamine (Toradol Inj) 15 mg NOW STAT IV 11/03/17 15:38 11/03/17 15:40 DC 11/03/17 15:45 15 MG Medical Decision The patient's care and disposition was discussed with Dr. Mccarthy, Attending ED Physician. This is a 27M with hematuria and R flank pain. Differential diagnosis include renal colic, appendicitis, diverticulitis, mesenteric ischemia, aortic pathology , infections, inflammatory bowel disease, PUD, biliary pathology, UTI, as well as others were entertained. Triage Nursing notes were reviewed. ED Course included an extensive history and physical exam, labs, CT Abdo and Pelvis and X-rays of the lumbar spine. 2:15AM - Pt was seen and examined at bedside and initial orders were placed. 2:45AM - Case discussed with Dr. Mccarthy. DDx include prostatitis, urethritis, epididymitis, UTI. 4:30PM - Results discussed with patient. He did mention his symptoms feel similar to previous UTIs when the patient had multiple sexual partners. Gonorrhea and Chlamydia are pending at this time. We discussed antibiotic treatment for possible STD or UTI. It was decided that we would treat for a UTI and pt will follow up the Gonorrhea and Chlamydia results with his PCP as outpatient. PT will be given one dose of Cipro now and be discharged on 500mg BID. The pt was informed about the findings as listed above. All questions were answered. Return instructions were outlined and the patient was discharged in good condition. The patient was referred to PCP for recheck of the current condition. Head Trauma GCS Score: 15 Impression Primary Impression: Urinary tract infection Departure Information Dispostion Home / Self-Care Condition GOOD Referrals Doc Anguiano MD (PCP) Patient Instructions My [facility] Additional Instructions You are being discharged on an antibiotic called Ciprofloxacin. Take this antibiotic starting early tomorrow morning (11/04/2017). Your urine has been sent for culture. Please follow up with your primary care doctor within one week for culture results. Regarding your back pain, it appears that your back pain is from overuse. Please take Naprosyn or Ibuprofen for pain. Try to avoid lifting heavy objects. Follow up with your primary care provider if your back pain persists. Return to the ER if you experience worsening of any of your symptoms including a worsening of blood in your urine and a worsening of your back pain. Resident Involvement: Resident Care Provided Care Provided: Pediatric Care ED
[2017-11-03 15:15] LABS: BASO % 0.2 %; BASO ABS # 0.02 K/uL (0-0.2); EOS % 0.3 %; EOS ABS # 0.04 K/uL (0-0.5); HEMATOCRIT 42.4 % (42-52); HEMOGLOBIN 15.4 g/dL (14.0-18.0); IG# 0.06 K/uL (0.00-0.02); LYMPH % 24.1 %; LYMPH ABS # 3.11 K/uL (1.2-3.4); MEAN CORPUSCULAR HGB CONC 36.3 g/dl (32-36); MEAN PLATELET VOLUME 11.4 fL (7.4-10.4); MONO % 4.2 %; MONO ABS # 0.54 K/uL (0.11-0.59); NEUT % 70.7 %; NEUT ABS # 9.14 K/uL (1.4-6.5); PLATELET COUNT 282 K/uL (130-400); RED CELL DISTRIBUTION WIDTH CV 14.1 % (11.5-14.5); RED CELL DISTRIBUTION WIDTH SD 45.3 fL (36.4-46.3); WHITE BLOOD COUNT 12.91 K/uL (4.8-10.8)
[2017-11-03] MEDS ORDERED: AMPH20TA2 PO (15:25)
[2017-11-03] MEDS ORDERED: NRN800 PO (15:25)
[2017-11-03 15:33] LABS: ALBUMIN 4.4 gm/dl (3.4-5.0); CALCIUM 9.7 mg/dl (8.5-10.1); CREATININE 0.88 mg/dl (0.60-1.40); POTASSIUM 3.8 mmol/L (3.5-5.1); TOTAL PROTEIN 9.2 gm/dl (6.4-8.2)
[2017-11-03] MEDS ORDERED: KETOROLAC TROMETHAMINE 30 MG/ML VIAL IV STA (15:38)
--- NOTE | 2017-11-03 15:38 | DIAGNOSTIC IMAGING REPORT ---
CT OF THE ABDOMEN AND PELVIS WITHOUT CONTRAST, STONE PROTOCOL CLINICAL HISTORY: Hematuria, right flank tenderness. COMPARISON STUDY: CT of the abdomen and pelvis May 15, 2008. TECHNIQUE: Helical axial images of the abdomen and pelvis were obtained without IV or oral contrast according to renal stone protocol. A dose lowering technique was utilized adhering to the principles of ALARA. FINDINGS: Lung bases are clear. There is a probable punctate left renal calculus. There are no ureteral calculi and there is no hydronephrosis. Evaluation of the remainder of the abdomen and pelvis is suboptimal on this unenhanced exam. The liver, adrenal glands and pancreas are normal. There is borderline splenomegaly. No peripancreatic or pericholecystic infiltration is present. No pneumatosis, free air or portal venous gas is present. There is no evidence for a bowel obstruction. The appendix is normal. There is no ascites or lymphadenopathy. IMPRESSION: 1. No ureteral calculi or hydronephrosis. Probable punctate left renal calculus. 2. No bowel obstruction. Normal appendix. 3. No acute process within the abdomen or pelvis on unenhanced exam. Electronically signed by: Stalin Joshi M.D. 11/03/2017 3:36 PM Dictated Date/Time: 11/03/2017 3:31 PM
--- NOTE | 2017-11-03 15:42 | EMERGENCY ROOM VISIT NOTE ---
History Report prepared by Sylvia: Kyle Munoz Under the Supervision of: Dr. Gregorio Mccarthy M.D. First contact with patient: 14:24 Chief Complaint: URINARY SYMPTOMS Stated Complaint: BLOOD IN URINE,BACK PAIN Nursing Triage Summary: patient states he had low back pain starting Wednesday. Blood in urine. Today began with burning with urination. Denies frequency. History of Present Illness The patient is a 27 year old male who presents to the Emergency Room with complaints of urinary symptoms. The patient states this morning when he woke up he had hematuria and was also passing blood clots. He states the hematuria has since resolved, but he now has urinary urgency and frequency. He also notes he has pain in his lower back, but denies loss of bowel or bladder or any weakness/ numbness. He does not that this weekend he did a lot of heavy lifting. The patient denies penile discharge, and denies concern for STD/STIs. The patient does note, since arrival to the ED, he has had suprapubic abdominal tenderness as well. Pt denies LOC, headache, fevers, chills, diaphoresis, visual changes, neck pain , chest pain, breathing difficulties, nausea, vomiting, melena, hematochezia, numbness, weakness, lymphadenopathy, rash, or other complaints. Source of History: patient Onset: few hours Position: back (lower) Symptom Intensity: moderate Quality: ache Timing: constant Modifying Factors (Worsening): movement Modifying Factors (Relieving): rest Review of Systems See HPI for pertinent positives and negatives. A total of ten systems were reviewed and were otherwise negative. Constitutional: No fever, No chills, No sweats Respiratory: No cough, No shortness of breath Cardiovascular: No chest pain Abdomen: + pain, No nausea, No vomiting, No diarrhea, No constipation Genitourinary - Male: + hematuria, + dysuria, + urinary frequency, + urinary urgency, No urinary incontinence Integumentary: No rash Past Medical & Surgical Medical Problems: (1) Altered mental status (2) Antisocial personality disorder (3) Attention deficit disorder (ADD) in adult (4) Bronchitis (5) Drug abuse (6) Drug overdose (7) Encephalopathy acute (8) History of intravenous drug abuse (9) Hypertension (10) Opiate abuse, episodic (11) Opioid dependence (12) Pneumonia Social History Problems: (1) Hepatitis C Family History FHx: alcoholism MOTHER FATHER FHx: diabetes FHx: heart disease FHx: hypertension Social History Smoking Status: Current Every Day Smoker Alcohol Use: none Drug Use: none Marital Status: single Housing Status: lives with friends Occupation Status: employed Current/Historical Medications Scheduled Amphetamine-Dextroamphetamine 20MG (Adderall 20MG), 20 MG PO BID Bupropion (Wellbutrin Sr), 200 MG PO DAILY Ciprofloxacin Hcl (Cipro), 500 MG PO BID Gabapentin (Gabapentin), 800 MG PO TID Quetiapine Fumarate (Seroquel), 100 MG PO BID Allergies Coded Allergies: Aspirin (Verified Allergy, Severe, RESP DISTRESS-THROAT CLOSES-HIVES, 08/31) Fish Allergy (Verified Allergy, Severe, RESPIRATORY DISTRESS-FACE SWELLS AND THROAT CLOSES UP, 08/31/17) Haloperidol (Verified Allergy, Severe, patient states "my throat closes", 08/31/17) Physical Exam Vital Signs Date Time Temp Pulse Resp B/P (MAP) Pulse Ox O2 Delivery O2 Flow Rate FiO2 11/03/17 17:10 101 18 153/96 98 11/03/17 15:46 95 16 145/96 99 Room Air 11/03/17 14:00 37.0 111 19 151/99 98 Room Air Physical Exam GENERAL: Uncomfortable appearing. Awake, alert, in no distress HENT: Normocephalic, atraumatic. Oropharynx unremarkable. EYES: Normal conjunctiva. Sclera non-icteric. NECK: Supple. No nuchal rigidity. FROM. No masses. RESPIRATORY: Clear to auscultation. No wheezes. No rales. Normal respiratory effort. CARDIAC: Normal rate. Normal rhythm. No murmurs. No rubs. Extremities warm and well perfused. Pulses equal. No JVD. GI: Soft, non-distended. Right CVA and Suprapubic tenderness to palpation. No rebound or guarding. No masses. RECTAL: Deferred. MUSCULOSKELETAL: Atraumatic. Chest examination reveals no tenderness. The back is symmetrical on inspection without obvious abnormality. No joint edema. LOWER EXTREMITIES: Calves are equal size bilaterally and non-tender. No edema. No discoloration. NEURO: Normal sensorium. No saddle anesthesia. No sensory or motor deficits noted. SKIN: No rash or jaundice noted. Medical Decision & Procedures ER Provider Diagnostic Interpretation: Radiology results as stated below per my review and radiologist interpretation: CT OF THE ABDOMEN AND PELVIS WITHOUT CONTRAST, STONE PROTOCOL CLINICAL HISTORY: Hematuria, right flank tenderness. COMPARISON STUDY: CT of the abdomen and pelvis May 15, 2008. TECHNIQUE: Helical axial images of the abdomen and pelvis were obtained without IV or oral contrast according to renal stone protocol. A dose lowering technique was utilized adhering to the principles of ALARA. FINDINGS: Lung bases are clear. There is a probable punctate left renal calculus. There are no ureteral calculi and there is no hydronephrosis. Evaluation of the remainder of the abdomen and pelvis is suboptimal on this unenhanced exam. The liver, adrenal glands and pancreas are normal. There is borderline splenomegaly. No peripancreatic or pericholecystic infiltration is present. No pneumatosis, free air or portal venous gas is present. There is no evidence for a bowel obstruction. The appendix is normal. There is no ascites or lymphadenopathy. IMPRESSION: 1. No ureteral calculi or hydronephrosis. Probable punctate left renal calculus. 2. No bowel obstruction. Normal appendix. 3. No acute process within the abdomen or pelvis on unenhanced exam. Laboratory Results 11/03/17 14:55 Red Blood Count 4.82, Mean Corpuscular Volume 88.0, Mean Corpuscular Hemoglobin 32.0, Mean Corpuscular Hemoglobin Concent 36.3, Mean Platelet Volume 11.4, Neutrophils (%) (Auto) 70.7, Lymphocytes (%) (Auto) 24.1, Monocytes (%) (Auto) 4.2, Eosinophils (%) (Auto) 0.3, Basophils (%) (Auto) 0.2, Neutrophils # (Auto) 9.14, Lymphocytes # (Auto) 3.11, Monocytes # (Auto) 0.54, Eosinophils # (Auto) 0.04, Basophils # (Auto) 0.02 11/03/17 14:55 Test 11/03/17 14:55 11/03/17 15:08 White Blood Count 12.91 K/uL (4.8-10.8) Red Blood Count 4.82 M/uL (4.7-6.1) Hemoglobin 15.4 g/dL (14.0-18.0) Hematocrit 42.4 % (42-52) Mean Corpuscular Volume 88.0 fL (80-100) Mean Corpuscular Hemoglobin 32.0 pg (25-34) Mean Corpuscular Hemoglobin Concent 36.3 g/dl (32-36) Platelet Count 282 K/uL (130-400) Mean Platelet Volume 11.4 fL (7.4-10.4) Neutrophils (%) (Auto) 70.7 % Lymphocytes (%) (Auto) 24.1 % Monocytes (%) (Auto) 4.2 % Eosinophils (%) (Auto) 0.3 % Basophils (%) (Auto) 0.2 % Neutrophils # (Auto) 9.14 K/uL (1.4-6.5) Lymphocytes # (Auto) 3.11 K/uL (1.2-3.4) Monocytes # (Auto) 0.54 K/uL (0.11-0.59) Eosinophils # (Auto) 0.04 K/uL (0-0.5) Basophils # (Auto) 0.02 K/uL (0-0.2) RDW Standard Deviation 45.3 fL (36.4-46.3) RDW Coefficient of Variation 14.1 % (11.5-14.5) Immature Granulocyte % (Auto) 0.5 % Immature Granulocyte # (Auto) 0.06 K/uL (0.00-0.02) Urine Color YELLOW Urine Appearance CLEAR (CLEAR) Urine pH 8.5 (4.5-7.5) Urine Specific Mora 1.018 (1.000-1.030) Urine Protein NEG (NEG) Urine Glucose (UA) NEG (NEG) Urine Ketones NEG (NEG) Urine Occult Blood NEG (NEG) Urine Nitrite NEG (NEG) Urine Bilirubin NEG (NEG) Urine Urobilinogen NEG (NEG) Urine Leukocyte Esterase NEG (NEG) Anion Gap 9.0 mmol/L (3-11) Est Creatinine Clear Calc Drug Dose 138.9 ml/min Estimated GFR () 134.5 Estimated GFR (Non- 116.1 BUN/Creatinine Ratio 10.0 (10-20) Calcium Level 9.7 mg/dl (8.5-10.1) Total Bilirubin 0.3 mg/dl (0.2-1) Aspartate Amino Transf (AST/SGOT) 36 U/L (15-37) Alanine Aminotransferase (ALT/SGPT) 85 U/L (12-78) Alkaline Phosphatase 88 U/L (45-117) Total Protein 9.2 gm/dl (6.4-8.2) Albumin 4.4 gm/dl (3.4-5.0) Globulin 4.8 gm/dl (2.5-4.0) Albumin/Globulin Ratio 0.9 (0.9-2) Bedside Troponin I < 0.030 ng/ml (0-0.045) Laboratory results reviewed by me Medications Administered Medications (Trade) Dose Ordered Sig/Elizabeth Route Start Time Stop Time Status Last Admin Dose Admin Morphine Sulfate (MoRPHine SULFATE INJ) 4 mg NOW STAT IV 11/03/17 14:36 11/03/17 14:42 DC 11/03/17 14:36 4 MG Ketorolac Tromethamine (Toradol Inj) 15 mg NOW STAT IV 11/03/17 15:38 11/03/17 15:40 DC 11/03/17 15:45 15 MG Ciprofloxacin (Cipro Tab) 500 mg NOW STAT PO 11/03/17 16:52 11/03/17 16:58 DC 11/03/17 17:05 500 MG Medical Decision Prior records/ancillary studies reviewed. Triage Nursing notes reviewed and agree them. The patient's history was concerning for flank and abdominal pain. Differential diagnosis: Etiologies such as renal colic, UTI, musculoskeletal, appendicitis, diverticulitis, mesenteric ischemia, aortic pathology, infections, inflammatory bowel disease, PUD, biliary pathology, as well as others were entertained. Physical examination findings: As above. ER treatment provided: IV morphine IV Toradol On reassessment the patient felt better. Oral Cipro Diagnostic interpretation by me: The labs revealed mild leukocytosis on CBC. Chemical panel unremarkable. Urinalysis urinalysis was unremarkable here. Imaging studies: CT of the abdomen and pelvis as above. Patient has some urinary symptoms and a leukocytosis. He will be covered with Cipro. By the evaluation outlined above emergent etiologies such as appendicitis, diverticulitis, mesenteric ischemia, aortic pathology, infections, inflammatory bowel disease, PUD, biliary pathology, , fracture, herniated disc, osteomyelitis , cauda equina, as well as others were deemed relatively unlikely. The patient was informed about the findings as listed above. All questions were answered and he will pleased with the treatment. Return instructions were outlined and the patient was discharged in stable condition. The patient was seen and examined with Dr. Mario Molckovsky, resident physician. We discussed the case and treatments ordered, reviewed the results, and determine the disposition. Please refer to the resident's note for additional details. Of note the patient was not seen in the a.m. His timing for the ED course should be all p.m. time stamps. I have been directly involved with the management and disposition as well as independently evaluated the patient as documented in this note. Outpatient prescription management: Cipro Referral: The patient was referred back to his primary care physician for follow-up for a recheck of the current condition. Medication Reconcilliation Current Medication List: was personally reviewed by me Blood Pressure Screening Patient's blood pressure: Elevated blood pressure Blood pressure disposition: Referred to PCP Impression Primary Impression: Suprapubic abdominal pain Additional Impressions: Low back pain Symptoms of urinary tract infection Scribe Attestation The scribe's documentation has been prepared under my direction and personally reviewed by me in its entirety. I confirm that the note above accurately reflects all work, treatment, procedures, and medical decision making performed by me. Departure Information Dispostion Home / Self-Care Prescriptions Ciprofloxacin Hcl (CIPRO) 500 Mg Tab 500 MG PO BID for 7 Days, #14 TAB Prov: Mario Dave M.D. 11/03/17 Referrals Doc Anguiano MD (PCP) Forms HOME CARE DOCUMENTATION FORM, IMPORTANT VISIT INFORMATION Patient Instructions My [facility] Additional Instructions You are being discharged on an antibiotic called Ciprofloxacin. Take this antibiotic starting early tomorrow morning (11/04/2017). Your urine has been sent for culture. Please follow up with your primary care doctor within one week for culture results. Regarding your back pain, it appears that your back pain is from overuse. Please take Naprosyn or Ibuprofen for pain. Try to avoid lifting heavy objects. Follow up with your primary care provider if your back pain persists. Return to the ER if you experience worsening of any of your symptoms including a worsening of blood in your urine and a worsening of your back pain. Problem Qualifiers
[2017-11-03] MEDS ORDERED: CIPROFLOXACIN 500 MG TAB PO STA (16:52)
[2017-11-03] MEDS ORDERED: CIPR-255 PO (17:01)
[2017-11-03 17:10] VITALS: BP 153/96; PULSE 101; O2SAT 98
== END 2017-11-03 17:11 | disposition home or self-care (01) ==
LOC: C.EDB 13:51 → C.EDC 17:11
DX: N39.0 Urinary tract infection, site not specified (principal); F60.2 Antisocial personality disorder; F90.9 Attention-deficit hyperactivity disorder, unspecified type; F17.200 Nicotine dependence, unspecified, uncomplicated; B19.20 Unspecified viral hepatitis C without hepatic coma; Z79.899 Other long term (current) drug therapy; Z88.6 Allergy status to analgesic agent; Z91.018 Allergy to other foods; Z88.8 Allergy status to other drugs, medicaments and biological substances

== ENCOUNTER 2018-09-20 16:26 | Inpatient (IN) ==
[2018-09-20] MEDS ORDERED: LORazepam 1 MG TAB PO STA (17:02)
[2018-09-20 17:13] LABS: Appearance Urine Clear (Clear); Bacteria Urine Automated Negative (Negative); Bilirubin Urine Negative (Negative); Blood Urine Negative (Negative); Color Urine Yellow; Epithelial Cell Urine Auto 20-30 /lpf (0-5); Glucose Urine UA Negative (Negative); Ketones Urine Trace (Negative); Leukocyte Esterase Urine 1+ (Negative); Nitrite Urine Negative (Negative); Protein Urine Negative (Negative); RBC Urine Automated 0-4 /hpf (0-4); Specific Gravity Urine 1.015 (1.000-1.030); Urobilinogen Urine Negative (Negative); WBC Urine Automated >30 /hpf (0-5); pH Urine 6.5 (4.5-7.5)
[2018-09-20 17:19] LABS: Basophils # (auto) 0.02 K/uL (0-0.2); Basophils % (auto) 0.1 %; Eosinophils % (auto) 0.7 %; Hematocrit (blood only) 48.7 % (42-52); Hemoglobin 17.5 g/dL (14.0-18.0); Immature Granulocytes # (auto) 0.05 K/uL (0.00-0.02); Immature Granulocytes % (auto) 0.4 %; Lymphocytes # (auto) 3.48 K/uL (1.2-3.4); Lymphocytes % (auto) 25.2 %; Mean Corpuscular Hgb Conc 35.9 g/dL (32-36); Mean Corpuscular Volume 92.8 fL (80-100); Mean Platelet Volume 11.4 fL (7.4-10.4); Monocytes # (auto) 0.81 K/uL (0.11-0.59); Monocytes % (auto) 5.9 %; Neutrophils # (auto) 9.35 K/uL (1.4-6.5); Neutrophils % (auto) 67.7 %; Nucleated RBC # (auto) 0.02 K/uL (0-0); Nucleated RBC % (auto) 0.1 %; Platelet Count 284 K/uL (130-400); RDW Coefficient of Variation 13.4 % (11.5-14.5); RDW Standard Deviation 45.5 fL (36.4-46.3); Red Blood Count 5.25 M/uL (4.7-6.1); White Blood Count 13.81 K/uL (4.8-10.8)
[2018-09-20 17:27] LABS: Amphetamines+Metham, Urine Neg (Neg); Barbiturates, Urine Neg (Neg); Benzodiazepine, Urine Neg (Neg); Cocaine, Urine Neg (Neg); MDMA (Ecstacy), Urine Neg (Neg); Methadone, Urine Neg (Neg); Opiate, Urine Neg (Neg); Phencyclidine, Urine Neg (Neg)
[2018-09-20 17:39] LABS: Albumin Level 4.2 gm/dl (3.4-5.0); BUN Creatinine Ratio 6.7 (10-20); Calcium 9.8 mg/dl (8.5-10.1); Creatinine Clr Calc Pharmacy 118.8 ml/min; Est GFR (African American) 133.6; Est GFR (Non-African American) 115.3; Potassium 3.8 mmol/L (3.5-5.1)
[2018-09-20 17:47] LABS: Acetaminophen < 2 ug/ml (10-30); Salicylate 3.6 mg/dl (2.8-20)
[2018-09-20 17:49] LABS: Bilirubin,Total 0.5 mg/dl (0.2-1); Globulin 4.1 gm/dl (2.5-4.0); Total Protein 8.3 gm/dl (6.4-8.2)
[2018-09-20] MEDS ORDERED: OLANZAPINE ZYDIS 5 MG ORALLY DIS. TAB PO STA (18:06)
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
[2018-09-20] MEDS ORDERED: NICOTINE 21 MG/24 HR TDSY TD STA (19:23)
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
[2018-09-21] MEDS ORDERED: MAGNESIUM HYDROXIDE SUSP 30 ML UDC PO PRN (00:14)
[2018-09-21] MEDS ORDERED: BISMUTH SUBSALICYLATE PER ML OMNICELL CHARGE PO PRN (00:14)
[2018-09-21] MEDS ORDERED: ACETAMINOPHEN 325 MG TAB PO PRN (00:14)
[2018-09-21] MEDS ORDERED: SODIUM CHLORIDE 0.65% NA SOLN 45 ML (OCEAN) PRN (00:14)
[2018-09-21] MEDS ORDERED: CHLORPROMAZINE HCL 25 MG TABLET PO PRN (02:24)
[2018-09-21] MEDS: NICOTINE POLACRILEX 2 MG GUM MT PRN ×5 (07:53→20:00)
[2018-09-21] MEDS: NICOTINE 21 MG/24 HR TDSY TD SCH (07:55)
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
[2018-09-21] MEDS ORDERED: risperiDONE 1 MG TABLET PO PRN (09:41)
[2018-09-21] MEDS ORDERED: LORazepam 1 MG TAB PO PRN ×2 (09:56→12:16)
[2018-09-21] MEDS: risperiDONE 1 MG TABLET PO SCH ×2 (11:20→20:26)
[2018-09-21] MEDS: CHLORPROMAZINE HCL 25 MG TABLET PO PRN (18:56)
[2018-09-22] MEDS: NICOTINE POLACRILEX 2 MG GUM MT PRN ×5 (06:58→17:37)
[2018-09-22] MEDS: NICOTINE 21 MG/24 HR TDSY TD SCH (06:58)
[2018-09-22] MEDS: risperiDONE 1 MG TABLET PO SCH (06:59)
[2018-09-22] MEDS: ALUMINUM/MAGNESIUM SUSP 30 ML UDC PO PRN ×2 (10:16→13:49)
[2018-09-22] MEDS: CHLORPROMAZINE HCL 25 MG TABLET PO PRN (11:08)
--- NOTE | 2018-09-22 11:40 | Psychiatric Progress Note ---
Date of Service September 22, 2018 Impression / Recommendations Impression 28-year-old single male from [facility] who has a history of mood disorder NOS (bipolar per records, but cannot rule out substance-induced mood disorder), polysubstance abuse (methamphetamine, heroin, alcohol, cannabis, and multiple prescription medications), and antisocial personality disorder who presents with agitation and urges to harm others in the context of escalating drug use and multiple psychosocial stressors, including a recent DUI, loss of job, and housing problems. He is certainly at high risk of harming someone else given his poor impulse control, substance abuse, unstable mood, and poor judgment. At this time, these traits seem most consistent with his diagnosis of antisocial personality disorder; however, we continue to attempt to tease out the possible presence of an underlying mood/thought disorder. He appears to have decompensated recently in the context of multiple stressors, escalating substance abuse, and being started on an SSRI antidepressant. Inpatient rehab is indicated, but unfortunately he is refusing, although he is willing for outpatient treatment. He has agreed to a behavioral plan which includes respectful treatment of staff and peers, and if he is aggressive, threatening, or causing property damage, legal authorities could be contacted. He has violated this plan today, but after significant redirection requested to remain in treatment and work with staff toward appropriate management of his symptoms. He was clearly informed and verbalized understanding than another infraction of his behavioral treatment plan will result in discharge from the unit - as the behavior being demonstrated is most consistent with an underlying personality disorder. Multiple staff were present for this discussion and behaviors will be monitored as we continue to work with the patient toward appropriate management of his concerns. (1) Mood disorder: 09/21 -the differential includes bipolar disorder, recurrent depression, adjustment disorder, and substance-induced mood disorder. -Discontinue escitalopram as the patient believes it worsens symptoms. It is difficult to tease out the role of his substance abuse, which undoubtedly also worsens symptoms. -Reviewed recommendations for mood stabilizing medication such as Depakote, which would also be helpful more anger and impulsivity, but the patient is declining, stating that he is concerned it could negatively affect his liver given his history of hep C and ongoing alcohol abuse. After much discussion of medication options, he agreed to a trial of risperidone. Start 1 mg twice daily, and order fasting lipid profile and glucose for tomorrow for monitoring on an atypical antipsychotic. Reviewed risks, benefits, and potential side effects with the patient. Continue chlorpromazine 50 mg as needed for psychosis. 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 Pt is somewhat cooperative with this process. (2) Antisocial personality disorder: 09/21 -consistent boundaries, behavioral expectations reviewed with the patient. He signed a behavior plan on admission, agreeing to communicate with staff in a respectful, productive manner. It specifically clarifies that he will not swear, engage in name calling, challenge and accuse others, physically act out, or cause damage to hospital property. Threatening or aggressive behavior can result in removal from the prognosis and filing of legal charges. This was again reviewed with the patient today, and he expressed understanding. 09/22 - Pt demonstrated an episode of seemingly unprovoked agitation and was unwilling to comply with staff's attempts at redirection. He had threatened to punch a male staff as well as threatened to cause damage to the patient ice/water machine. Pt later punched an object in his room causing damage to the skin of his hand. He tolerated conversation about the inappropriateness of his behavior and reminded of the behavioral plan he signed prior to admission. Pt was clearly told that another incident of poor judgement in violation of his behavioral treatment plan would result in discharge from the unit. Encouraged to process thoughts and emotions with staff if feeling the need to act out in this manner, which he agreed to attempting to do. - Pt convincingly denied suicidal ideation or homicidal ideation, but did verbalize a desire for "people to suffer" - Based on description of his behavior and conversations between the patient and staff, it is the most likely case that his behavior, inappropriate language, and attempts to act out in an aggressive/threatening way are related to his antisocial personality traits as opposed to a clear underlying psychiatric disorder. Pt has not demonstrated any evidence of psychosis or delusional beliefs to suggest his poor judgement and struggle with impulse control are better explained by a primary mood or thought disorder. (3) Methamphetamine abuse: 09/21 -likely triggered current episode. Recommended inpatient rehab, which the patient is refusing. He is willing for outpatient substance abuse treatment. (4) Alcohol abuse: 09/21 - Brief intervention was offered and accepted Intervention was greater than 5 min in length. Brief interventions include: 1. Assess Readiness to Quit, 2. Advise: Help Patient to Reduce or Abstain from Alcohol, 3. Agree: Set Specific, Feasible Goals, 4. Assist: Anticipate barriers, Problem-Solving Solutions. Social work t o 5. Arrange: Referrals to appropriate treatment. Summary of intervention: The patient is in contemplation stage with regards to transtheoretical model of change. The patient is advised to decrease alcohol consumption due to depressant effects and risk of interactions with prescription medications. The patient agreed to outpatient substance abuse treatment and will be provided with recovery materials to continue to education self on how to cope with their condition without drinking. -Recovery protocol. -AWSS protocol for withdrawal 09/22 - Has formally scored for AWSS medication intervention once in the last 24- hours (5) Cannabis abuse: 09/21 -continue to provide psychoeducation on the risks of ongoing substance abuse and recommendations for abstinence and inpatient rehab. He does not believe that his cannabis use is a problem, and does not desire to change his behavior. (6) Opioid dependence: 09/21 -ongoing heroin and Suboxone abuse. Refer for outpatient substance abuse treatment as above. Inventory Assets Strengths: Willing for treatment Needs: Sobriety, substance abuse treatment, adherence with outpatient treatment Risk Factors Assessment Male: Yes : Yes Do You Have Access To A Gun?: No Health Problems: Yes Mental Health Diagnoses: Yes Substance Use Disorders: Yes Previous Attempt: Yes Previous Psychiatric Hospitalization: Yes Hopelessness: Yes Smoker: Yes Protective Factors Assessment Gnosticist Beliefs: No : No Responsible for Young Children: No (has children, but not custody) Employed: Yes ([id number]) Stable Relationships: No Supportive Family: No Good Rapport with Provider: No Interval History Identifying Information GAVIN GUARDADO is a 28-year-old M who currently lives in [facility], has a history of unspecified mood disorder, antisocial personality disorder and polysubstance abuse, and was admitted on 09/20/18 23:22 on a 201 voluntary commitment for paranoia, threats to harm himself and others. Chief Complaint "What? So what? So what does that mean then?" Review of Systems Notes Constitutional: reports difficulty sleeping last evening Cardiovascular: denied Respiratory: denied Gastrointestinal: denied Neurological: denied Musculoskeletal: reports moderate pain of right hand, s/p punching object in his room Psychiatric: denies symptoms other than stated above Total of at least 10 systems reviewed, pertinent positives as above and in HPI. Sleep Information Total Hours of Sleep: 4.25 Sleep Comments: very broken sleep over the evening and night shifts. he received two doses of hs vistaril for sleep. Meal Information Percent Meal Consumed - Breakfast: 100 Percent Meal Consumed - Lunch: 100 Percent Meal Consumed - Dinner: 100 Subjective Subjective Patient was seen & assessed and interval progress reviewed with nursing and social work. Staff reports the patient is scheduled for a court hearing jabier . It was reported he is planning to call a friend about housing options at discharge. Pt continued to endorse episodes of HI and remains in a private room. Pt was seen today immediately following an event in which he had threatened staff and later punched an object in his room. He was not easily able to be redirected by staff and security was called to the unit. With security in the distance, out of view of patient, this provider spoke with the patient along with charge nurse and unit counselor. Pt was informed that his behavior was not appropriate and that it was in fact a violation of the behavioral treatment plan he had agreed to and signed prior to his admission. Pt reported awareness of this and asked "so what now?" Staff informed patient that his behavior is alarming to the other patients and would not be tolerated. He responded by stating, "I'm scared, my head is so f*cked up, it's scary." Pt stated he punched an object in his room to avoid "punching anyone else." Pt states he becomes agitated when he does not sleep well, and believes this is the cause of his agitated behavior. He reports needing help from staff, but later states that "I don't think medications are the answer, I think I need to do this on my own." Pt was encouraged to come to staff with future difficulty managing his emotions, in order to receive assistance processing emotions and handling them in an appropriate manner. Pt did not convincingly report desire to do this, but did appears calmer at this point in the conversation. Pt was asked about the presence of suicidality and states, "no, no way. I'm don't feel worthless, that's the problem, I'm worthy, I'm too valuable to off myself." Pt denied any active thoughts or plans at this time to harm anyone, but did verb telma a strong desire for "people to suffer." Pt was clearly informed with multiple staff present that we desire to continue to offer him assistance and want to work with him on treatment - but that his aggressive behavior would not be tolerated. He was reminded again of his agreement with his behavioral treatment plan and confirmed understanding that another violation of this plan would result in discharge from the unit - per language used in the behavioral treatment plan he agreed to. Pt denied other needs or concerns at this time. Physical Exam Psychiatric Orientation: alert and oriented x 3; + uncooperative Apperance: appropriately dressed (casually dressed) and + disheveled Eye Contact: good eye contact Motor Behavior: steady gait and station and + psychomotor agitation (restlessness with an agitated flare ) Speech: + loud speech (yelling at times, firm and direct tone) Affect: + angry affect Mood: + angry mood Reports feeling "scared", related to thoughts in his head Thought Process: goal directed thought process Thought Content: + cognitive distortions Suicidal Thoughts: denies suicidal thoughts and denies suicidal plan stating "I'm too worthy, I'm too valuable to off myself" Homicidal Thoughts: denies homicidal thoughts (in regard to direct or active intent to harm another) Pt did verbalize statements related to punching a male staff, does report desire for "people to suffer" Hallucinations: no auditory hallucinations and no visual hallucinations Cognition: attention grossly intact and language grossly intact Insight: + poor insight Judgement: + poor judgement Vital Signs (Past 24 Hours) Last Vital Signs Temp 36.8 C 09/22/18 11:14 Pulse 103 H 09/22/18 11:14 Resp 18 09/22/18 11:14 BP 145/95 H 09/22/18 06:52 Pulse Ox 95 09/21/18 12:08 Visual inspection of patient's right hand following reports of punching an object in his room. Spaces between patient's MCPs of the right hand are bloodied, with fine layers of skin retracted due to the nature of the injury. No acute hemorrhaging beyond the immediate area involved. Results & Data Current Inpatient Medications Current Inpatient Medications: Current Inpatient Medications Acetaminophen (Tylenol) 650 mg PO Q4H PRN PRN Reason: Headache or Minor Fever Stop: 10/21/18 00:13 Al Hydrox/Mg Hydrox/Simethicone (Maalox) 30 ml PO Q4H PRN PRN Reason: GI Upset Stop: 10/21/18 00:13 Last Admin: 09/22/18 10:16 Dose: 30 ml Documented by: Bismuth Subsalicylate (Kaopectate) 15 ml PO PRN PRN PRN Reason: Loose Stool Stop: 10/21/18 00:13 Last Admin: 09/21/18 16:49 Dose: 15 ml Documented by: Chlorpromazine HCl (Thorazine) 25 mg PO Q8H PRN PRN Reason: Agitation Stop: 10/21/18 18:13 Last Admin: 09/22/18 11:08 Dose: 25 mg Documented by: Hydroxyzine HCl (Vistaril) 50 mg PO HSZ PRN PRN Reason: Insomnia Stop: 10/21/18 00:13 Last Admin: 09/22/18 02:47 Dose: 50 mg Documented by: Hydroxyzine HCl (Vistaril) 25 mg PO Q4H PRN PRN Reason: Anxiety Stop: 10/21/18 00:13 Lorazepam (Ativan) 1 - 3 mg PO UD PRN; Protocol PRN Reason: EtoH Withdrawal AWSS 6-10+ Stop: 10/21/18 12:15 Magnesium Hydroxide (Milk Of Magnesia) 30 ml PO DAILY PRN PRN Reason: Heartburn Stop: 10/21/18 00:13 Miscellaneous (Remove Nicoderm Patch) 1 ea N/A HS KARELY Stop: 10/20/18 20:59 Last Admin: 09/21/18 20:46 Dose: Not Given Documented by: Nicotine (Nicoderm Cq) 21 mg TD QAM KARELY Stop: 10/21/18 08:59 Last Admin: 09/22/18 06:58 Dose: 21 mg Documented by: Nicotine Polacrilex (Nicorette 2mg) 1 piece MT UD PRN PRN Reason: Nicotine Withdrawal Stop: 10/21/18 00:13 Last Admin: 09/22/18 10:16 Dose: 1 piece Documented by: Risperidone (Risperdal) 1 mg PO BID KARELY Stop: 10/21/18 09:44 Last Admin: 09/22/18 06:59 Dose: 1 mg Documented by: Sodium Chloride (Buna Nasal) 1 - 2 sprays NA PRN PRN PRN Reason: Nasal Dryness/Congestion Stop: 10/21/18 00:13 Mental Health & Subst Abuse Tx Therapist Name of Therapist: denies 

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
== END 2018-09-22 19:25 | disposition home or self-care (01) | DRG 885 ==
LOC: ED 16:26 → 3S 23:22